=== PATIENT | female | born 1945 | race Caucasian/White ===

== ENCOUNTER → 2020-08-31 10:19 | Outpatient (CLI) | payer MEDICARE, SELFPAY ==
--- NOTE | ~2020-08-31 | CT_ITS ---
EXAMINATION:CT diagnostic chest wo con DATE: 08/31/2020 10:55 INDICATION: Dyspnea. Frequent asthma attacks. TECHNIQUE: Computed tomography (CT) of the chest was performed without intravenous contrast. Automate d exposure control and iterative reconstruction technique were employed. The dose-length product (DLP ) was 170.31 mGy-cm. COMPARISON: None. FINDINGS: A calcified right lung nodule and calcified right hilar lymph nodes are consistent with old granulomatous disease. There are two groundglass opacities in left upper lobe measuring up to 12 mm. There is mild atelectasis in the lingula. There is mild scarring at the lung apices. No pleural effu mariama. The heart size is normal. There are coronary artery calcifications. No pericardial effusion. Ca lcifications in the spleen are consistent with old granulomatous disease. There is mild thoracic spon dylosis. IMPRESSION: 1. Small groundglass opacities in left upper lobe, likely inflammation or infection. Reviewed, dictated and finalized at location A. IMPRESSION: 1. Small groundglass opacities in left upper lobe, likely inflammation or infec tion.
== END ==
PROVIDERS: PCP Internal Medicine
DX: J45.50 Severe persistent asthma, uncomplicated (principal); R91.8 Other nonspecific abnormal finding of lung field
CPT/HCPCS: 71250

== ENCOUNTER 2023-02-07 02:08 | Day surgery (SDC) | payer MEDICARE, SELFPAY ==
[2023-02-04 11:06] VITALS: BMI 23.8
--- NOTE | 2023-02-04 11:24 | PC.NURSE ---
Report to the Outpatient Waiting Room, entrance under the green pavilion located off [facility], at time __1100 on date _02/07/23 . Planned Procedure Time: __1200 . Time changes happen often and if your time is changed the preop area will call you the afternoon before. - You and your visitor will be asked to self-screen and do not enter if you have any COVID symptoms. - A mask is optional within the hospital at this time. -MAY HAVE LIGHT BREAKFAST Take the following medications with a SIP of water the morning of surgery: REGULAR HOME MEDS DO NOT STOP ANY OF YOUR OTHER PRESCRIPTION MEDICATIONS PRIOR TO SURGERY ?EXCEPT THE FOLLOWING Medications to discontinue per DR. VEGA - _ASPIRIN 7 DAYS PRIOR TO SURGERY last dose TAKEN PER PT ____01/31/23 Please no make-up, nail macedonian, hairspray, perfume, deodorant, or body powder the day of surgery. No jewelry (including any body piercings) or valuables the day of surgery, leave them at home. Please take a shower or bath the night before, or the morning of, surgery with an antibacterial soap. Wear comfortable, loose fitting clothing. Children are encouraged to wear pajamas. - Jewelry must be removed prior to entering the operating room. Rings and piercings that are not removed may be cut off. - The hospital will not accept responsibility for valuables. - Please leave all valuables, including medications, at home the day of surgery. -MAY DRIVE SELF TO/FROM HOSPITAL - BODYWORK THERAPIST IS ENCOURAGED For Pediatric surgeries, we recommend two adults accompany the child home. Follow any additional instructions given to you from your surgeon. If you or anyone in your household have experienced Covid symptoms in the past week, please notify your surgeon or the nurse liaison at the phone number below for possible testing. Telephone instructions given to ____PT and asked if any additional questions and then verbalized understanding. Patient advised to call surgeon office or pre surgery nurse liaison [phone] if any additional questions.
[2023-02-07] VITALS (9 sets, daily range): BP systolic 142–181; BP diastolic 54–75; PULSE 64–79; RESP 14–18; TEMP 36.4; O2SAT 98–100
[2023-02-07] MEDS: ACETAMINOPHEN 500 MG TABLET 1000 MG PO (11:15)
--- NOTE | 2023-02-07 11:38 | WPDHPUPDATE1 ---
History and Physical Update Update Date/Time: 02/07/23 11:38 History and Physical has been reviewed, including an updated exam of the patient. There are NO changes in the patient's condition. Risks, benefits, and alternatives have been discussed and questions answered. Patient agrees to proceed with procedure.
[2023-02-07] MEDS: BUPIVACAINE/EPINEPHRINE 0.5% 50 ML VIAL 15 ML INFILTRATE (12:40)
--- NOTE | 2023-02-07 13:14 | P.OP_ITS ---
Procedure Note - Detailed Date of Procedure 02/07/23 Pre-op Diagnosis left wrist ganglion cyst Post-op Diagnosis Same Procedure Performed Excision left wrist dorsal ganglion cyst. Surgeon Myles Aquino MD Anesthesia Local Findings Large dorsal ganglion cyst. Stalk extending to the dorsal joint capsule. Ob vious benign appearance of a ganglion cyst with mucinous fluid inside. No pathology sent. Description of Procedure 6 mL 0.5% Marcaine with epinephrine injected in the periarticular tissues around the ganglion. Transverse incision created. Gentle blunt dissection with tenotomy scissors expose the cyst. The stalk was identified from the dorsal cap osbaldo excised and suture ligated with 4-0 Monocryl suture. The wound was irrigated and closed with interrupted 4-0 Monocryl suture, running, and Steri- Strips. The patient tolerated the procedure well. Sterile dressing was applied. Estimated Blood Loss 1 Pathology None sent Complications No immediate complications Condition Stable Disposition Same day [facility] Billing Surgery - Charge Forward: Surgery Billing
== END 2023-02-07 13:10 | disposition home or self-care (01) ==
PROVIDERS: PCP Internal Medicine; Visit Provider Orthopaedic Surgery
PROC: (CPT 25111; principal; 2023-02-07 12:00)
DX: M67.432 Ganglion, left wrist (principal)
CPT/HCPCS: 25111; 88305; A9270

== ENCOUNTER 2023-12-09 00:12 | Day surgery (SDC) | payer MEDICARE, SELFPAY ==
[2023-11-18 14:38] VITALS: BMI 23.6
--- NOTE | 2023-12-09 08:50 | WPDANESEPPF ---
Anes - Initial Pre Proc Eval Procedure: Operation Date: 12/09/23 13:30 Proposed Procedures p Colonoscopy - Leroy Adkins MD Date/Time: 12/09/23 08:50 Surgeon: Leroy Adkins MD Pre Op Diagnosis: Personal hx. of colon polyps Patient Data Age: 78 Gender: F Height: 1.52 m Weight: 55 kg Allergies Allergy/AdvReac Type Severity Reaction Status Date / Time Sulfa (Sulfonamide Allergy Unknown Unknown Verified 12/09/23 10:32 Antibiotics) Home Medications Medication Instructions Recorded Confirmed Type aspirin 81 mg tablet,delayed 81 mg PO DAILY 09/29/19 12/09/23 History release (Adult Aspirin Regimen) diltiazem HCl 180 mg 180 mg PO DAILY 09/29/19 12/09/23 History capsule,extended release 24 hr (Cartia XT) gabapentin 300 mg capsule See Rx Instructions .Route .COMPLEX 09/29/19 12/09/23 History ipratropium 20 mcg-albuterol 100 1 puff inhalation QID PRN Wheezing 09/29/19 12/09/23 History mcg/actuation mist for inhalation (Combivent Respimat) montelukast 10 mg tablet 10 mg PO DAILY 09/29/19 12/09/23 History fluticasone fur. 100 mcg-umeclid 1 inh inhalation DAILY PRN asthma 04/02/21 12/09/23 History 62.5 mcg-vilant 25 mcg inhalat.powder (Trelegy Ellipta) levothyroxine 50 mcg capsule 50 mcg PO DAILY 10/17/21 12/09/23 History lisinopril 20 1 tablet PO DAILY 02/04/23 12/09/23 History mg-hydrochlorothiazide 12.5 mg tablet magnesium 500 mg tablet 15 mg PO BID 02/04/23 12/09/23 History omeprazole 20 mg capsule,delayed 20 mg PO DAILY PRN Acid Reflux 02/04/23 12/09/23 History release Patient hx anesthesia problems: none Family hx anesthesia problems: none Results Review: All pre-operative results and documents have been reviewed as part of the pre-operative evaluation. [facility] Past Medical History Medical History (Updated 12/09/23 @ 08:53 by Timoteo Neves DO) Anxiety Asthma High cholesterol Hypertension Hypothyroidism Overactive bladder Rapid heart beat Screening mammogram, encounter for Surgical History Surgical History (Updated 12/09/23 @ 08:53 by Timoteo Neves DO) H/O knee surgery H/O: hysterectomy supracx hysterectomy History of bladder suspension procedure History of cardiac radiofrequency ablation 2015 History of surgical removal of ganglion cyst (~02/07/23) left wrist History of tonsillectomy Hx of cholecystectomy Family History Family History Mother Cancer Other Family history of congenital heart disease Family history of malignant neoplasm Social History Social History Years smoked: 45 Smoking status: Former smoker Tobacco type: cigarettes Second hand tobacco smoke exposure: No Additional smoking assessment comments: STATES SMOKED 1-2PK/DAY/38YRS/QUIT 1999 Alcohol intake: never Substance use: never Substance use type: does not use Lack of Transportation: No Lack of Food: Never True Current Housing: I Have Housing Concerned About Future Housing: No Difficulty Paying Gas/Electric Bills: No Difficulty Paying for Meds: No Currently Unemployed: No Education: Decline to Answer Living arrangements: with family Additional living arrangements comments: Occupation/Education: retired Gender identity (if verbalized by the patient): Female Sexual Orientation (if Verbalized by the Patient): Straight or Heterosexual Spiritual care concerns: No Anes - Eval Final PreProcedure Day of Procedure 12/09/23 08:50 Patient weight: normal Heart: regular rate and rhythm Lungs: clear to auscultation and normal air movement Airway: Mallampati scale class III Neurological: alert and oriented Last oral intake: >/= 8 hours ASA classification: III Emergent: no Anesthetic plan: proceed Anesthesia type and monitoring: general GIVS and standard karlie
[2023-12-09 10:34] VITALS: BP 141/61; PULSE 92; RESP 18; TEMP 36; O2SAT 99
[2023-12-09] MEDS: LACTATED RINGERS 1,000 ML 150 ML IV CONT (10:47)
--- NOTE | 2023-12-09 11:40 | PM.HPGS ---
History of Present Illness History of Present Illness Consent: Risks, benefits, and alternatives have been discussed and questions answered. Patient agrees to proceed with procedure. Chief complaint: Personal hx. of colon polyps Narrative: Dory Adams is a 78 year old female with colon polyp, last colonoscopy 2016 Review of Systems Review of Systems: All systems reviewed & are unremarkable except as noted in HPI and below PMFSH Past Medical History Medical History (Updated 12/09/23 @ 11:42 by Leroy Adkins MD) Anxiety Asthma Colon polyp High cholesterol Hypertension Hypothyroidism Overactive bladder Rapid heart beat Screening mammogram, encounter for Surgical History Surgical History (Updated 12/09/23 @ 08:53 by Timoteo Neves DO) H/O knee surgery H/O: hysterectomy supracx hysterectomy History of bladder suspension procedure History of cardiac radiofrequency ablation 2014 History of surgical removal of ganglion cyst (~02/07/23) left wrist History of tonsillectomy Hx of cholecystectomy Family History Family History Mother Cancer Other Family history of congenital heart disease Family history of malignant neoplasm Social History Social History Years smoked: 45 Smoking status: Former smoker Tobacco type: cigarettes Second hand tobacco smoke exposure: No Additional smoking assessment comments: STATES SMOKED 1-2PK/DAY/38YRS/QUIT 1999 Alcohol intake: never Substance use: never Substance use type: does not use Lack of Transportation: No Lack of Food: Never True Current Housing: I Have Housing Concerned About Future Housing: No Difficulty Paying Gas/Electric Bills: No Difficulty Paying for Meds: No Currently Unemployed: No Education: Decline to Answer Living arrangements: with family Additional living arrangements comments: Occupation/Education: retired Gender identity (if verbalized by the patient): Female Sexual Orientation (if Verbalized by the Patient): Straight or Heterosexual Spiritual care concerns: No Meds Home Medications and Allergies Home Medications Medication Instructions Recorded Confirmed Type aspirin 81 mg tablet,delayed 81 mg PO DAILY 09/29/19 12/09/23 History release (Adult Aspirin Regimen) diltiazem HCl 180 mg 180 mg PO DAILY 09/29/19 12/09/23 History capsule,extended release 24 hr (Cartia XT) gabapentin 300 mg capsule See Rx Instructions .Route .COMPLEX 09/29/19 12/09/23 History ipratropium 20 mcg-albuterol 100 1 puff inhalation QID PRN Wheezing 09/29/19 12/09/23 History mcg/actuation mist for inhalation (Combivent Respimat) montelukast 10 mg tablet 10 mg PO DAILY 09/29/19 12/09/23 History fluticasone fur. 100 mcg-umeclid 1 inh inhalation DAILY PRN asthma 04/02/21 12/09/23 History 62.5 mcg-vilant 25 mcg inhalat.powder (Trelegy Ellipta) levothyroxine 50 mcg capsule 50 mcg PO DAILY 10/17/21 12/09/23 History lisinopril 20 1 tablet PO DAILY 02/04/23 12/09/23 History mg-hydrochlorothiazide 12.5 mg tablet magnesium 500 mg tablet 15 mg PO BID 02/04/23 12/09/23 History omeprazole 20 mg capsule,delayed 20 mg PO DAILY PRN Acid Reflux 02/04/23 12/09/23 History release Allergies Allergy/AdvReac Type Severity Reaction Status Date / Time Sulfa (Sulfonamide Allergy Unknown Unknown Verified 12/09/23 10:32 Antibiotics) Vital Signs Vital Signs - 24 hr 12/09/23 10:34 Temperature 96.8 F L Pulse Rate 92 Respiratory Rate 18 Blood Pressure 141/61 H Pulse Oximetry 99 Oxygen Delivery Room Air Exam Const: General: comfortable and no acute distress HENMT: Face/Nose/Sinus: Normal nares present Eyes: General: appearance normal, both eyes and all related structures Neck: Neck: no JVD Resp: Auscultation: clear to auscultation bila
[2023-12-09 11:53] VITALS: BP 128/57; PULSE 77; RESP 18; O2SAT 99
[2023-12-09 12:03] VITALS: BP 122/62; PULSE 81; RESP 25; O2SAT 100
[2023-12-09 12:13] VITALS: BP 119/67; PULSE 76; RESP 13; O2SAT 100
== END 2023-12-09 12:17 | disposition home or self-care (01) ==
PROVIDERS: PCP Internal Medicine; Visit Provider Internal Medicine Gastroenterology
PROC: 0DJD8ZZ Inspection of Lower Intestinal Tract, Via Natural or Artificial Opening Endoscopic (ICD-10-PCS; CPT 45378; principal; 2023-12-09 13:30)
DX: Z12.11 Encounter for screening for malignant neoplasm of colon (principal); K57.30 Diverticulosis of large intestine without perforation or abscess without bleeding; I10 Essential (primary) hypertension; E78.00 Pure hypercholesterolemia, unspecified; E03.9 Hypothyroidism, unspecified; F41.9 Anxiety disorder, unspecified; J45.909 Unspecified asthma, uncomplicated; N32.81 Overactive bladder; R00.0 Tachycardia, unspecified; Z79.82 Long term (current) use of aspirin; Z98.890 Other specified postprocedural states; Z90.49 Acquired absence of other specified parts of digestive tract; Z86.010 Personal history of colon polyps; Z87.891 Personal history of nicotine dependence; Z86.79 Personal history of other diseases of the circulatory system; Z80.9 Family history of malignant neoplasm, unspecified; Z82.49 Family history of ischemic heart disease and other diseases of the circulatory system
CPT/HCPCS: G0105; J2704; J7120

== ENCOUNTER 2023-12-18 10:33 | Outpatient (CLI) | payer MEDICARE, SELFPAY ==
--- NOTE | ~2023-12-18 | XR_ITS ---
XR knee LT min 4V Ordering provider: Myles Aquino MD History: . M17.12 - Unilateral primary osteoarthritis, left knee . Comparison: January 07, 2019 FINDINGS: BONES: No acute fracture or dislocation. JOINT SPACES: Narrowing of the medial compartment. SOFT TISSUES: Vascular calcifications. IMPRESSION: No acute osseous abnormality left knee. Mild to Moderate osteoarthritic changes. Reviewed, dictated and finalized at location A.
== END 2023-12-18 10:34 | disposition home or self-care (01) ==
PROVIDERS: PCP Internal Medicine; Visit Provider Orthopaedic Surgery
DX: M17.12 Unilateral primary osteoarthritis, left knee (principal)
CPT/HCPCS: 73564

== ENCOUNTER 2023-12-24 14:06 | Outpatient (CLI) | payer MEDICARE, SELFPAY ==
--- NOTE | ~2023-12-24 | XR_ITS ---
XR cervical spine 4-5V Ordering provider: Myles Aquino MD History: . M54.2 - Cervicalgia . Comparison: None. FINDINGS: VERTEBRAL BODIES: Normal height and alignment. No visible fracture or subluxation. The dens is intact . DISK SPACES: Narrowing of the disc C3-C4. Multilevel facet joint disease. PARASPINOUS SOFT TISSUES: No prevertebral soft tissue swelling. IMPRESSION: No acute osseous abnormality cervical spine. Reviewed, dictated and finalized at location A.
== END 2023-12-24 14:07 | disposition home or self-care (01) ==
PROVIDERS: PCP Internal Medicine; Visit Provider Orthopaedic Surgery
DX: M54.2 Cervicalgia (principal)
CPT/HCPCS: 72050

== ENCOUNTER 2024-07-20 09:00 | Outpatient (RCR) | payer MEDICARE, SELFPAY ==
--- NOTE | 2024-07-12 11:04 | PCPTNOTE ---
pt was 10 minutes late for initial evaluation.
--- NOTE | 2024-07-12 12:03 | OPREHPOC ---
Outpatient Therapy Plan of Care This is a Multidisciplinary Plan of Care that may contain components documented by all disciplines (PT, OT, and ST.) PT Problem 1 PT Problem #1 Knowledge Deficit PT Goal 1 Goal / Goal Update *independent with HEP Target Visit 8 PT Problem 2 PT Problem #2 Pain PT Goal 1 Goal / Goal Update * pt report pain rating at worst of 4/10 Target Visit 8 PT Problem 3 PT Problem #3 Impaired Flexibility PT Goal 1 Goal / Goal Update *increase hamstring flexibility to decrease muscle tightness and decrease pull on hip: supine SLR R 60' Target Visit 8 PT Problem 4 PT Problem #4 Impaired Strength PT Goal 1 Goal / Goal Update increase strength of L hip, to improve mobility and activity level: 1* single leg standing 20 seconds with good stability 2* gross strength L hip 4+/5 Target Visit 8
--- NOTE | 2024-07-12 12:03 | PTOPEVAL1 ---
Assessment and note entered by Mabel Wong, PT Evaluation Information Assessment Status Evaluation ICD-10 Condition Codes (PT) Pain in left hip M25.552,Abnormalities of gait and mobility R26.9,Weakness R53.1 Other ICD-10 Condition Codes ( S76.312A strain of thigh muscle PT) Onset May 2024 Subjective Information some pain about 1 year ago with cleaning carpets; then leaned down to pick something up and had more pain in L hip and buttock; x ray of L hip dr told her pulled hamstring had PT at another facility, doing exercises and was better, then did some exercise pushing down on her L leg and pain got worse; stopped therapy there July 05. activity: retired; is able to do everything, but more soreness and pain; have a fitness membership- tries to go regularly for exercises. Reported Pain Level Pain Score Self Report Additional Pain Score Comments pain range in the past week: 1-10/10; soreness and pain over L hamstring- proximal insertion and mid thigh; lightening bolt or someone sticks your leg, bad pain; some groin pain--is less now; increase pain: move quickly, twist foot, walking/ standing with home tasks- varies decrease pain: rest, ice, heat, rub the area, sit, lie down, over the counter meds; after get up and moving, is less; have compression strap wrap around thigh sleeping is OK Assessment PT Clinical Summary Dory has the diagnosis of L hamstring strain. Onset of pain about 1 year ago with cleaning carpets, then increased recently with bending over Has had PT at another facility but stopped there last week due to more pain. LE functional scale rating of 61% limitation in activity level. With the evaluation: she has tenderness with palpation over L hamstring- lateral hamstring at mid muscle, also reports pain in groin area; decreased single leg standing and strength of L LE on stairs, requires single step pattern due to pain; decreased flexibility of hamstring; Skilled PT services are indicted for modalities to decrease pain, therapeutic exercises to increase strength of L hip and hamstring flexibility with education for HEP. Plan of Care Interventions Electrical Stimulation,Hot Pack/Cold Pack,Manual Therapy,Neuro Re-education,Patient/Caregiver Education,Therapeutic Activities,Therapeutic Exercise,Ultrasound,Other Other Interventions taping PT Services Indicated Yes Treatment Frequency and 1-2x/wk for 8 visits Duration These treatments will address the objective and functional deficits as defined above. The patient will be advanced safely and appropriately in order for the patient to progress towards his/her prior level of function. Additional exercises will be introduced and as well as a comprehensive home exercise program upon discharge, if needed, ?to ensure carryover of functional gains achieved in the clinic. This treatment plan has been reviewed and agreement upon by the patient.
--- NOTE | 2024-08-02 12:59 | OPREHPOC ---
Outpatient Therapy Plan of Care This is a Multidisciplinary Plan of Care that may contain components documented by all disciplines (PT, OT, and ST.) PT Problem 1 PT Problem #1 Knowledge Deficit PT Goal 1 Goal / Goal Update *independent with HEP 5-5-25 d/c pt called and canceled goals not assessed. Target Visit 8 PT Problem 2 PT Problem #2 Pain PT Goal 1 Goal / Goal Update * pt report pain rating at worst of 4/10 5-5-25 d/c pt called and canceled goals not assessed. Target Visit 8 PT Problem 3 PT Problem #3 Impaired Flexibility PT Goal 1 Goal / Goal Update *increase hamstring flexibility to decrease muscle tightness and decrease pull on hip: supine SLR R 60' 5-5-25 d/c pt called and canceled goals not assessed. Target Visit 8 PT Problem 4 PT Problem #4 Impaired Strength PT Goal 1 Goal / Goal Update increase strength of L hip, to improve mobility and activity level: 1* single leg standing 20 seconds with good stability 2* gross strength L hip 4+/5 5-5-25 d/c pt called and canceled goals not assessed. Target Visit 8
--- NOTE | 2024-08-02 13:02 | PTOPDC ---
Assessment and note entered by Mabel Wong, PT Assessment Status Discharge - Pt Not Present ICD-10 Condition Codes (PT) Pain in left hip M25.552,Abnormalities of gait and mobility R26.9,Weakness R53.1 Other ICD-10 Condition Codes ( S76.312A strain of thigh muscle PT) Onset May 2024 Subjective Information pt called and canceled remaining PT appointments due to feeling better. Assessment PT Clinical Summary Dory has received 3 PT sessions. She called today and canceled her remaining appointments due to feeling better. The goals were not addressed. Discharge PT services. Plan of Care PT Services Indicated No
== END 2024-08-02 14:32 | disposition home or self-care (01) ==
LOC: ANHPT 09:00
PROVIDERS: PCP Internal Medicine; Visit Provider Orthopaedic Surgery
DX: S76.312A Strain of muscle, fascia and tendon of the posterior muscle group at thigh level, left thigh, initial encounter (principal)
CPT/HCPCS: 97035; 97110; 97161; 97530

== ENCOUNTER 2024-12-13 10:59 | Emergency (ER) | payer MEDICARE, SELFPAY ==
--- NOTE | ~2024-12-13 | XR_ITS ---
Examination: XR chest 2V Clinical History: cough x 1 wk, rales L upper Comparison: Cough, Rales Technique: PA and Lateral Findings: Cardiomediastinal silhouette normal size and configuration. Lungs clear. Mild hyperinflation Right basilar calcified granuloma. No acute bony abnormality. Osteopenia. IMPRESSION: 1. No acute cardiopulmonary findings. Reviewed, dictated and finalized at location R.
[2024-12-13 11:10] VITALS: BP 144/69; PULSE 102; RESP 16; TEMP 36.2; O2SAT 95
--- NOTE | 2024-12-13 11:18 | ED.URI ---
HPI - URI/Sore Throat General Chief Complaint: Upper Respiratory Infection Stated Complaint: Cough Time Seen by Provider: 12/13/24 11:18 Source: patient Mode of arrival: ambulatory Limitations: no limitations History of Present Illness HPI Narrative: 79-year-old female with history of asthma per oz today with complaint of continued cough. Patient also reports that she has had sinus congestion and pressure. Is taking cefdinir that was prescribed by her primary care physician for bacterial sinusitis. Patient states that symptoms are improving but she continues to have cough. Patient states she called her primary care to office today asking for prednisone and they recommended that she get a checks x-ray before they would prescribed for her. Patient also needs albuterol nebs refilled. All systems reviewed and negative except as noted above. Related Data Home Medications ?Medication ?Instructions ?Recorded ?Confirmed ?Last Taken ?Type aspirin 81 mg tablet,delayed 81 mg PO DAILY 09/29/19 11/16/24 12/08/23 History release (Adult Aspirin Regimen) diltiazem HCl 180 mg 180 mg PO DAILY 09/29/19 11/16/24 12/09/23 02:00 History capsule,extended release 24 hr (Cartia XT) ipratropium 20 mcg-albuterol 100 1 puff inhalation QID PRN Wheezing 09/29/19 11/16/24 12/08/23 History mcg/actuation mist for inhalation (Combivent Respimat) fluticasone fur. 100 mcg-umeclid 1 inh inhalation DAILY PRN asthma 04/02/21 11/16/24 12/08/23 History 62.5 mcg-vilant 25 mcg inhalat.powder (Trelegy Ellipta) magnesium 500 mg tablet 15 mg PO BID 02/04/23 11/16/24 12/08/23 History ibandronate 150 mg tablet 150 mg PO MONTHLY 01/01/24 11/16/24 Unknown History gabapentin 300 mg capsule 300 mg PO .COMPLEX 11/16/24 11/16/24 Unknown History montelukast 10 mg tablet 10 mg PO QHS 11/16/24 11/16/24 Unknown History Allergies Allergy/AdvReac Type Severity Reaction Status Date / Time Sulfa (Sulfonamide Allergy Intermediate Swelling Verified 12/13/24 11:06 Antibiotics) of Lip/Tongue/Throat PMFSH Past Medical History Medical History (Updated 12/13/24 @ 11:52 by Jerri Irving NP) Acute non-recurrent maxillary sinusitis Anemia hemoglobin 11.9 on 07/20/2024. Statin intolerance patient reports myalgias and swelling of the muscles with Lipitor and another statin years ago. Mixed hyperlipidemia Total cholesterol 223, triglycerides 126, HDL 44, LDL 154 with ratio 5.1 on 07/20/2024. Mild intermittent asthma in adult without complication Essential hypertension Irritable bowel syndrome GERD (gastroesophageal reflux disease) Rapid heart beat Stable tachyarrhythmia previous ablation Neuropathy of left foot Colon polyp normal colonoscopy 12/09/2023 with no need for follow-up. Screening mammogram, encounter for Hypothyroidism TSH 1.07 on 07/20/2024. Overactive bladder High cholesterol Asthma Anxiety Surgical History Surgical History History of cardiac radiofrequency ablation 2014 History of surgical removal of ganglion cyst (~02/07/23) left wrist H/O knee surgery History of tonsillectomy History of bladder suspension procedure Hx of cholecystectomy H/O: hysterectomy supracx hysterectomy Family History Family History (Updated 11/16/24 @ 13:11 by Radha Bruce MA) Mother Cancer Cerebrovascular accident Hypertension Sibling Lung cancer Sibling Stomach cancer Sibling Lung cancer Sibling Heart disease Sibling Lung cancer Sibling Lung cancer Father Asthma Cerebrovascular accident Other Family history of congenital heart disease Family history of malignant neoplasm Social History Social History Years smoked: 45 Smoking status: Former smoker Tobacco type: cigarettes Second hand tobacco smoke exposure: No Additional smoking assessment comments: STATES SMOKED 1-2PK/DAY/38YRS/QUIT 1999 Alcohol intake: never Substance use: never Substance use type: does not use Lack of Transportation: No Lack of Food: Never True Current Housing: I Have Housing Concerned About Future Housing: No Difficulty Paying Gas/Electric Bills: No Difficulty Paying for Meds: No Currently Unemployed: No Education: Decline to Answer Living arrangements: with family Additional living arrangements comments: Occupation/Education: retired Gender identity (if verbalized by the patient): Female Sexual Orientation (if Verbalized by the Patient): Straight or Heterosexual Spiritual care concerns: No Comments At time of signature, agree with nursing past medical, surgical, social and family history. There is no relevant family history pertinent to the presenting complaint. Exam Narrative: GENERAL: This is a well-nourished, well-developed patient, in no apparent distress. HEAD: normocephalic, atraumatic. EYES: PERRL. Sclera clear/white. Vision is grossly intact. EARS: External ears normal, auditory canals clear and without drainage, TMs normal without perforation. Hearing grossly intact. NOSE: External nose normal with Clear nasal drainage, erythema to nares. THROAT: Mucous membranes moist, Clear postnasal drainage NECK: Neck supple, non-tender without lymphadenopathy, masses or thyromegaly. CARDIOVASCULAR: Regular rate and rhythm without murmurs, gallops, or rubs. RESPIRATORY: course on expiration to left upper lung field otherwise a mild expiratory wheezing throughout. Breath sounds equal bilaterally. No wheezes, rales, or rhonchi. SKIN: warm, Dry, intact with no suspicious lesions or rash, good texture and turgor. NEURO: awake, alert, and oriented to person, place and time. There were no obvious focal neurologic abnormalities. EXTREMITIES: No joint tenderness, effusion, or edema noted. Course Course Level of Care: Express Care Visit Vital Signs Vital signs: Vital Signs Temperature 36.2 C L 12/13/24 11:10 Pulse Rate 102 H 12/13/24 11:10 Respiratory Rate 16 12/13/24 11:10 Blood Pressure 144/69 H 12/13/24 11:10 Pulse Oximetry 95 12/13/24 11:10 Oxygen Delivery Room Air 12/13/24 11:10 Temperature 36.2 C L 12/13/24 11:10 Pulse Rate 102 H 12/13/24 11:10 Respiratory Rate 16 12/13/24 11:10 Blood Pressure 144/69 H 12/13/24 11:10 Pulse Oximetry 95 12/13/24 11:10 Oxygen Delivery Room Air 12/13/24 11:10 Reviewed MDM - URI/Sore Throat MDM Narrative Medical decision making narrative: chest x-ray negative for pneumonia. Will prescribe prednisone burst, refill albuterol neb. Patient is well-appearing, nontoxic. No respiratory distress. Will follow up with primary care physician as needed. Differential Diagnosis Differential diagnosis: Likely upper respiratory infection, sinusitis, viral infection and other ( Pneumonia, COVID-19, asthma exacerbation) Imaging Data My impression: agree with radiologist Radiologist's impression: Examination: XR chest 2V Clinical History: cough x 1 wk, rales L upper Comparison: Cough, Rales Technique: PA and Lateral Findings: Cardiomediastinal silhouette normal size and configuration. Lungs clear. Mild hyperinflation Right basilar calcified granuloma. No acute bony abnormality. Osteopenia. IMPRESSION: 1. No acute cardiopulmonary findings. Discharge Plan Discharge Clinical Impression: Asthma exacerbation Patient Disposition: Home Condition: Stable Instructions: Asthma (ED) Additional Instructions: your chest x-ray was negative for pneumonia. Continue cefdinir as prescribed by her primary care physician. Start prednisone prescription today. Follow-up with your doctor if not improving. Patient Language: Slovenian Prescriptions: New albuterol sulfate 2.5 mg /3 mL (0.083 %) solution for nebulization 2.5 mg inhalation Q6H PRN (Reason: shortness of breath or wheezing) Qty: 75 0RF prednisone 20 mg tablet 40 mg PO DAILY 5 Days Qty: 10 0RF No Action Trelegy Ellipta 100-62.5-25 mcg blister with device 1 inh inhalation DAILY PRN (Reason: asthma) Patient Comments: PT STATS CURRENTLY NOT TAKING - DOES NOT WANT IT REMOVED FROM LIST diltiazem HCl [Cartia XT] 180 mg capsule,extended release 24hr 180 mg PO DAILY Combivent Respimat 20-100 mcg/actuation mist 1 puff INHALATION QID PRN (Reason: Wheezing) Rx Instructions: space evenly during waking hours aspirin [Adult Aspirin Regimen] 81 mg tablet,delayed release (DR/EC) 81 mg PO DAILY ibandronate 150 mg tablet 150 mg PO MONTHLY dexamethasone 0.5 mg/5 mL solution 0.5 mg PO BID 7 Days Qty: 70 4RF Rx Instructions: Swish around your mouth for 30 seconds and spit out gabapentin 300 mg capsule 300 mg PO .COMPLEX Rx Instructions: 300 mg orally One capsule in the morning and 2 capsules at bedtime; duloxetine 30 mg capsule,delayed release(DR/EC) 30 mg PO DAILY Qty: 30 11RF Rx Instructions: plan to titrate to 60 mg montelukast 10 mg tablet 10 mg PO QHS clobetasol 0.05 % ointment 1 applic topical Q48H Qty: 60 3RF estradiol 0.01 % (0.1 mg/gram) cream 1 g vaginal 2XW Qty: 42.5 5RF magnesium 500 mg Tablet 15 mg PO BID lisinopril 20 mg tablet 20 mg PO DAILY Qty: 90 3RF cefdinir 300 mg capsule 300 mg PO Q12H 10 Days Qty: 20 0RF Rx Instructions: do not take magnesium supplements at the same time as the antibiotic. levothyroxine [Levo-T] 50 mcg tablet 50 mcg PO DAILY Qty: 90 3RF Follow-up/Referrals: Toribio Burris MD [Primary Care Provider, [facility]] Time of Disposition: 11:54
--- OUTSIDE RECORDS SUMMARY | 2024-12-13 12:56 | XMS_ITS | Patient Health Record ---
Author Organization [facility] Address [address] [place] [address] Support Name Relationship Address Phone Carolyne Adamslis Guarantor Unknown Reason For Referral No Information Medications Medication SIG (Take, Route, Frequency, Duration) Notes Start Date End Date Status Nebulizer Use nebs as needed f or asthma 02/03/2007 Active Ibandronate Sodium 150 MG one pill q mos Oral 08/2006 Active Synthroid 150 MCG 1 Every Day Oral 11/08/2005 Active Gabapentin 100 MG one in am and two in pm Oral 08/13/2010 Active ALPRAZolam 0.25 MG 1 Every Day At Bedti ia Oral 04/17/2009 Active Lisinopril 10 MG 1 Every Day Oral 02/03/2007 Active Singulair 10 MG 1 Every Day Oral 07/20/2010 Active CeleXA 20 MG 1 Every Day for depression Oral 12/22/2009 Active Ines Allergy 180 MG QD Oral 01/23/2010 Active Fosamax 70 MG 1 Q WEEK Oral 04/21/2009 A ctive Calcium Antacid 500 MG 1 Three Times A Day Oral Active Onward Thyroid 30 MG 1 Every Day Oral 08/13/2010 Active Zithromax Z-Adama 250 MG as directed Oral 09/17/2010 Active Nasonex 24HR 50 MCG/ACT 2 sprays each no stril q day Nasal 07/20/2010 Active Advair Diskus 250-50 MCG/ACT 1 INHALATION BID Inhalation 07/20/2010 Active Flonase Allergy Relief 50 MCG/ACT 2 sprays each nostril q day Nasal 04/17/2009 Active predniSONE 10 MG (48) 6pills x 3days, 4p ills x 3days, 2pills x 3days, 1pill x 3days Oral 09/17/2010 Active Albuterol Sulfate HFA 108 (90 Base) MCG/ACT 2 puffs q 4 hrs prn Inhalation 04/17/2009 Active Combivent Respimat 20-100 MCG/ACT 2 PUFF QID Inhalation 07/20/2010 Active Lipitor 40 MG 1 Every Day Oral 11/08/2005 Active Immunizations Vaccine Route Administration Date Status Comme nts Infuenza, trivalent, recombinant, preservative free Unknown 12/29/2008 Administered migrated LegPa tid= [id number] Date=01/18/2005 Vac= Influenza Pneumococcal conjugate PCV 13 Unknown 05/19/2002 Administered migrated LegPati d= [id number] Date=05/19/2002 Vac= PCV series Td (adult) Unknown 01/17/2000 Administered migrated Leg Patid= [id number] Date=01/17/2000 Vac= TD Plan Of Treatment No Information Insurance Providers Payer Name Payer Address Payer Phone Subscriber Number Group Number Insured Name Patient Relationship to Insured Coverage Start Date Coverage End Date [employer] [place] [address] [place] [address] [id number] Dory Adams Self - patient is the insured 1
--- OUTSIDE RECORDS SUMMARY | 2024-12-13 12:56 | XMS_ITS | Clinical Summary ---
Author Organization [facility] Address [address] [place] [address] Care Team Providers Care Information Engineer Name Role Phone Juwan Contreras MD Primary Care Provider [phone] Allergies Active Allergy Reactions Criticality Noted Date Comments Atorvastatin Muscle pain Medium 03/29/2013 Rosuvastatin Edema Medium 03/29/2013 Sulfa (Sulfonamide Antibiotics) Swelling Medium Sulfanilamide Medications dilTIAZem XR (CARDIZEM CD,DILACOR XR) 180 mg 24 hr capsule TAKE ONE CAPSULE DAILY 7 Active ipratropium-albut Eliezer (COMBIVENT RESPIMAT) 20-100 mcg/actuation inhalerIndication s:Chronic Obstructive Pulmonary Disease with Bronchospasms INHALE 1 PUFF 4 TIMES DAILY (MAXIMUM OF 6 PUFFS IN 24 HOURS) NEEDED 7 Active gabapentin (NEURONTIN) 300 mg capsule TAKE 1 CAP AT BEDTIME X 7 DAYS, THEN TAKE 2 CAPS AT BEDTIME UNTIL GONE 7 Active montelukast (SINGULAIR) 10 mg tablet daily. 7 Active alendronate (FOSAMAX) 70 mg tablet 8 Active aspirin 81 mg enteric coated tablet Take 81 mg by mouth daily Active albuterol 2.5 mg /3 mL (0.083 %) nebulizer solution INHALE THE CONTENTS OF ONE VIAL VIA NEBULIZER 4 TIMES A DAY NEEDED. 0 Active lisinopril-hydroC HLOROthiazide (ZESTORETIC) 20-12.5 mg per tablet 0 Active magnesium oxide/magnesium (WJ-ITFJ-NBKGVCC ORAL) Magnesium (oxide/AA chelate) 500mg daily Active multivitamin capsule Take by mouth 7 Active levothyroxine (SYNTHROID) 50 mcg tablet daily Active inhalational spacing device spacer 1 Inhalation 2 (two) times a day 1 each 1 1 Active cholecalciferol (VITAMIN D-3) 400 unit capsule Active calcium carbonate (CALCIUM 500 ORAL) Take by mouth Active ibandronate (BONIVA) 150 mg tablet TAKE 1 TABLET BY MOUTH ONCE EVERY MONTH 1 Active multivitamin capsule Take by mouth 7 Active benzonatate (TESSALON) 200 mg capsule 1 Active clobetasoL (TEMOVATE) 0.05 % ointment 1 Active fluticasone-umecl idin-vilanter (Trelegy Ellipta) 200-62.5-25 mcg inhaler Inhale 1 puff daily 1 each 3 1 Active Active Problems Problem Noted Date Diagnosed Date Atrial flutter 03/21/2020 Hypothyroidism 03/21/2020 HTN (hypertension) 03/21/2020 Neuropathy 03/21/2020 Basal cell carcinoma of leg, right 01/03/2020 Neoplasm of soft tissue 11/08/2019 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 Holguin HYSTERECTOMY BLADDER SURGERY HERNIA REPAIR KNEE SURGERY TONSILLECTOMY TUBAL LIGATION Medical History Medical History Date Comments Anxiety disorder anxiety Hx Other Medical Genitourinary D isease Disorder of thyroid Thyroid dise ase Hx Other Medical Hearing impairm ent Asthma Asthma Hypertension Hypertension Atrial arrhythmia Cardiac arryth komal Hx Other Medical Headache, migra ine Hyperlipidemia Hyperlipidemia Hx Other Medical Hemorrhoids Hx Other Medical Peripheral neur opathy; Outcome: improved Cancer (HCC) Family History Medical History Relation Name Comments Asthma Brother 1 Cancer Brother 1 Family history of malignant neoplasm - (Added by TW Conv) Heart disease Brother 1 Hypertension Brother 2 Family history of hypertension - (Added by TW Conv) Asthma Father Cancer Father Family history of malignant neoplasm - (Added by TW Conv) Hypertension Father Family history of hypertension - (Added by TW Conv) Cancer Mother Family history of malignant neoplasm - (Added by TW Conv) Heart disease Mother Hypertension Mother Family history of hypertension - (Added by TW Conv) Other Other 1 Family history of Cancer, uterine; Other Other 2 Family history of Cancer - leg; Lung cancer Other 3 Family history of Cancer, lung; Other Other 4 Family history of Cancer - stomach; Other Other 5 Family history of Cancer - metastasized to brain; Other Other 6 Family history of aneurysm; Alcohol abuse Other 7 Family history of Alcoholism; Asthma Other 8 Family history of Asthma; COPD Other 9 Family history of COPD; Hyperlipidemia Other 10 Family histor y of Hyperlipidemia; Hypertension Other 11 Family history of Hypertension; Heart attack Other 12 Family history of Myocardial infarction; Kidney disease Other 13 Family histor y of Renal disease; Peripheral vascular disease Other 14 Peripheral vascular disease; Other Other 15 Family history of Spinal disease, lumbar; Cancer Sister 1 Family history of malignant neoplasm - (Added by TW Conv) Heart disease Sister 1 Hypertension Sister 2 Family history of hypertension - (Added by TW Conv) Heart disease Son Relation Name Status Comments Brother 1 Brother 2 Father Mother Other 1 Other 2 Other 3 Other 4 Other 5 Other 6 Other 7 Other 8 Other 9 Other 10 Other 11 Other 12 Other 13 Other 14 Other 15 Sister 1 Sister 2 Son Social History Tobacco Use Types Packs/Day Years Used Date Smoking Tobacco: Former Smokeless Tobacco: Never Alcohol Use Standard Drinks/Week Comments No 0 (1 standard drink = 0.6 oz pur e alcohol) Comments Unknown Sex and Gender Information Value Date Recorded Sex Assigned at Not on file Legal Sex Female 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 Gender Identity Not on file Sexual Orientation Not on file Obstetrics History Last Filed Vital Signs Vital Sign Reading Time Taken Comments Blood Pressure 119/78 03/13/2021 10:12 AM GUIDE RAIL CLEANER Pulse 73 03/13/2021 10:12 AM GUIDE RAIL CLEANER Temperature 36.2 C (97.2 F) 11/14/2020 10:05 AM CDT Respiratory Rate - - Oxygen Saturation 97% 11/14/2020 10:05 AM CDT Inhaled Oxygen Concentration - - Weight 57.2 kg (126 lb) 03/13/2021 10:12 AM GUIDE RAIL CLEANER Height 152.4 cm (5') 03/13/2021 10:12 AM GUIDE RAIL CLEANER Body Mass Index 24.61 03/13/2021 10:12 AM GUIDE RAIL CLEANER Plan of Treatment Not on file Insurance [facility] MEDICARE AD[facility]ANT[facility] MED[facility] Address: [facility] [address] [place] [address] MEDICARE COMMERCIAL GENERIC Care Teams Information Engineer Relationship Specialty Start Date End Date Juwan Contreras MD PCP - General 12/09/12
--- OUTSIDE RECORDS SUMMARY | 2024-12-13 12:56 | XMS_ITS | Encounter Summary ---
Author Organization [facility] Address [address] [place] [address] Phone Care Team Providers Care Laundry Bag Punch Operator Name Role Phone Juwan Contreras MD Primary Care Provider [phone] Encounter Details Date Type Department Care Team (Latest Contact Info) Description 09/05/2020 Orders Only [facility] Scanning, Provider Social History Tobacco Use Types Packs/Day Years Used Date Smoking Tobacco: Former Smokeless Tobacco: Never Alcohol Use Standard Drinks/Week Comments No 0 (1 standard drink = 0.6 oz pur e alcohol) Comments Unknown Sex and Gender Information Value Date Recorded Sex Assigned at Not on file Legal Sex Female 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
--- OUTSIDE RECORDS SUMMARY | 2024-12-13 12:56 | XMS_ITS | Encounter Summary ---
Author Organization [facility] Address [address] [place] [address] Phone Care Team Providers Care Degreasing Solution Reclaimer Name Role Phone Juwan Contreras MD Primary Care Provider [phone] Encounter Details Date Type Department Care Team (Latest Contact Info) Description 09/01/2020 Orders Only [facility] Scanning, Provider Social History Tobacco Use Types Packs/Day Years Used Date Smoking Tobacco: Former Smokeless Tobacco: Never Alcohol Use Standard Drinks/Week Comments No 0 (1 standard drink = 0.6 oz pur e alcohol) Comments Unknown Sex and Gender Information Value Date Recorded Sex Assigned at Not on file Legal Sex Female 3:01 AM EMD TEACHER Gender Identity Not on file Sexual Orientation Not on file documented as of this encounter Plan of Treatment Not on file documented as of this encounter Procedures Procedure Name Priority Date/Time Associated Diagnosis Comments SCAN - LABS 09/01/2020 SCAN - RADIOLOGY/IMAGING 08/31/2020 documented in this encounter Results * SCAN - LABS (09/01/2020) us Provider Scanning Final Result * SCAN - RADIOLOGY/IMAGING (08/31/2020) Anatomical Region Laterality Modality Other us Provider Scanning Edited Result - Final documented in this encounter Visit Diagnoses Not on filedocumented in this encounter Care Teams Degreasing Solution Reclaimer Relationship Specialty Start Date End Date Juwan Contreras MD PCP - General 12/09/12 documented as of this encounter
--- OUTSIDE RECORDS SUMMARY | 2024-12-13 12:56 | XMS_ITS | Encounter Summary ---
Author Organization [facility] Address [address] [place] [address] Phone Care Team Providers Care Pilot Control Operator Name Role Phone Juwan Contreras MD Primary Care Provider [phone] Reason for Visit * Reason Onset Date Comments Knee Injury 08/08/2020 Patient fell in parking lot coming in for appt. Patient provider was told and patient assured us she was ok. Pt was given ice for knee. Encounter Details Date Type Department Care Team (Late st Contact Info) Description 08/08/2020 Documentation [facility] Medicine Pulmonary [address] [place] [address] Sylvia Singh RCP Knee Injury (Patient fell in parking lot coming in for appt. Patient provider was told and patient assured us she was ok. Pt was given ice for knee. 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
== END 2024-12-13 11:55 | disposition home or self-care (01) ==
PROVIDERS: Emergency Provider Nurse Practitioner Family; PCP Family Medicine
DX: J45.901 Unspecified asthma with (acute) exacerbation (principal); Z87.891 Personal history of nicotine dependence; E78.2 Mixed hyperlipidemia; I10 Essential (primary) hypertension; K21.9 Gastro-esophageal reflux disease without esophagitis; E03.9 Hypothyroidism, unspecified; G62.9 Polyneuropathy, unspecified; Z79.82 Long term (current) use of aspirin
CPT/HCPCS: 71046; 99213; G0463

== ENCOUNTER 2024-12-19 22:33 | Emergency (ER) | payer MEDICARE, SELFPAY ==
--- NOTE | ~2024-12-19 | XR_ITS ---
Examination: XR chest 1V portable Clinical History: cough Comparison: 12/13/2024 Technique: Portable AP Findings: Heart size normal. Lungs clear. Mild hyperinflation. Right basilar calcified granuloma. No acute bony abnormality. IMPRESSION: 1. No acute cardiopulmonary findings given portable technique. Reviewed, dictated and finalized at location R.
[2024-12-19 22:47] VITALS: BP 159/61; PULSE 69; RESP 22; TEMP 36.7; O2SAT 98
--- NOTE | 2024-12-19 23:10 | ECG_ITS ---
Test Date: 2024-12-19 23:17:47 Measurements Intervals [place] Rate: 70 P: 66 PA: 128 QRS: 43 QRSD: 101 T: 45 QT: 360 QTc: 391 Interpretive Statements SINUS RHYTHM No previous ECG available for comparison Electronically Signed On 12-20-2024 14:20:58 CDT by Eloy Enamorado M.D.
[2024-12-19] MEDS: LORazepam (*CRX) 0.5 MG TABLET PO (23:43)
[2024-12-19] MEDS: DOXYCYCLINE HYCLATE 100 MG TABLET PO (23:43)
[2024-12-19 23:45] VITALS: RESP 16; O2SAT 98
--- OUTSIDE RECORDS SUMMARY | 2024-12-19 23:46 | XMS_ITS | Encounter Summary ---
Author Organization [facility] Address [address] [place] [address] Phone Care Team Providers Care Plug Sorter Name Role Phone Juwan Contreras MD Primary Care Provider [phone] Reason for Visit * Reason Onset Date Comments Knee Injury 08/08/2020 Patient fell in parking lot coming in for appt. Patient provider was told and patient assured us she was ok. Pt was given ice for knee. Encounter Details Date Type Department Care Team (Late st Contact Info) Description 08/08/2020 Documentation [facility] Medicine Pulmonary [address] [facility] 2nd [address] [place] [address] Sylvia Singh RCP Knee Injury (Patient fell [...] on file Legal Sex Female 3:01 AM COMBATANT DIVER QUALIFIED Gender Identity Not on file Sexual Orientation Not on file documented as of this encounter Miscellaneous Notes * Incidental Note - Sylvia Singh RCP - 08/08/2020 11:59 PM CDT Pt fell in parking lot before visit documented in this encounter Plan of Treatment Not on file documented as of this encounter Visit Diagnoses Not on filedocumented in this encounter Care Teams Plug Sorter Relationship Specialty Start Date End Date Juwan Contreras MD PCP - General 12/09/12 documented as of this encounter
--- OUTSIDE RECORDS SUMMARY | 2024-12-19 23:46 | XMS_ITS | Clinical Summary ---
Author Organization [facility] Address [address] [place] [address] Care Team Providers Care Wellhead Pumper Name Role Phone Juwan Contreras MD Primary Care Provider [phone] Allergies Active Allergy Reactions Criticality Noted Date [...] mg per tablet 0 Active magnesium oxide/magnesium (IF-[id number] ORAL) Magnesium (oxide/AA chelate) 500mg daily Active [...] on file Legal Sex Female 3:01 AM SUPERVISOR REMELT Gender Identity Not on file Sexual Orientation Not on file Obstetrics History Last Filed Vital Signs Vital Sign Reading Time Taken Comments Blood Pressure 119/78 03/13/2021 10:12 AM SUPERVISOR REMELT Pulse 73 03/13/2021 10:12 AM SUPERVISOR REMELT Temperature 36.2 C (97.2 F) 11/14/2020 10:05 AM CDT Respiratory Rate - - Oxygen Saturation 97% 11/14/2020 10:05 AM CDT Inhaled Oxygen Concentration - - Weight 57.2 kg (126 lb) 03/13/2021 10:12 AM SUPERVISOR REMELT Height 152.4 cm (5') 03/13/2021 10:12 AM SUPERVISOR REMELT Body Mass Index 24.61 03/13/2021 10:12 AM SUPERVISOR REMELT Plan of Treatment Not on file Insurance [facility] MEDICARE ADVANTAGE MEDICARE COMMERCIAL GENERIC Care Teams Wellhead Pumper Relationship Specialty Start Date End Date Juwan Contreras MD PCP - General 12/09/12
--- OUTSIDE RECORDS SUMMARY | 2024-12-19 23:46 | XMS_ITS | Encounter Summary ---
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
--- OUTSIDE RECORDS SUMMARY | 2024-12-19 23:46 | XMS_ITS | Encounter Summary ---
Author Organization [facility] Address [address] [place] [address] Phone Care Team Providers Care Flight Reservations Manager Name Role Phone Juwan Contreras MD Primary Care Provider [phone] Encounter Details Date Type Department Care Team [...] on file Legal Sex Female 3:01 AM LICENSED MORTGAGE LOAN OFFICER Gender Identity Not on file Sexual Orientation [...] on filedocumented in this encounter Care Teams Flight Reservations Manager Relationship Specialty Start Date End Date Juwan Contreras MD PCP - General 12/09/12 documented as of this encounter
--- OUTSIDE RECORDS SUMMARY | 2024-12-19 23:46 | XMS_ITS | Patient Health Record ---
Author Organization [facility] Address [address] [facility] [address] [place] [address] Support Name Relationship Address Phone Carolyne Adamslis [...] 0.25 MG 1 Every Day At [place] Oral 04/17/2009 Active Lisinopril 10 MG 1 Every Day Oral 02/03/2007 Active Singulair 10 MG 1 Every Day Oral 07/20/2010 Active CeleXA 20 MG 1 Every Day for depression Oral 12/22/2009 Active Ines Allergy 180 MG QD Oral 01/23/2010 Active Fosamax 70 MG 1 Q WEEK Oral 04/21/2009 A ctive Calcium Antacid 500 MG 1 Three Times A Day Oral Active [place] Thyroid 30 MG 1 Every Day Oral [...] free Unknown 12/29/2008 Administered migrated LegPa tid= [id number] Date=01/18/2005 Vac= Influenza Pneumococcal conjugate PCV 13 Unknown 05/19/2002 Administered migrated LegPati d= [id number] Date=05/19/2002 Vac= PCV series Td (adult) Unknown 01/17/2000 Administered migrated Leg Patid= [id number] Date=01/17/2000 Vac= TD Plan Of Treatment No Information Insurance Providers Payer Name Payer Address Payer Phone Subscriber Number Group Number Insured Name Patient Relationship to Insured Coverage Start Date Coverage End Date [employer] [place] [address] [place] [address] [id number] Dory Adams Self - patient is the insured 1
[2024-12-19] MEDS: ALBUTEROL SULFATE NEB 2.5 MG/3 ML INH 15 MG INHALATION (23:53)
[2024-12-19] MEDS: IPRATROPIUM BR 0.02% INH SOLN 0.5 MG/2.5 ML VIAL 1 MG INHALATION (23:54)
[2024-12-19 23:59] VITALS: PULSE 71; RESP 24
[2024-12-20 00:48] VITALS: BP 164/80; PULSE 71; RESP 18; O2SAT 98
[2024-12-20 01:22] VITALS: BP 160/62; PULSE 82; RESP 14; O2SAT 98
--- NOTE | 2024-12-20 02:38 | ED.RECABL ---
HPI - Recheck/Abnormal Lab/Rx General Chief Complaint: Recheck/Abnormal Lab/Rx Stated Complaint: ELEVATED BLOOD PRESSURE Time Seen by Provider: 12/19/24 23:10 History of Present Illness HPI narrative: A for last week or so patient has had a sinus infection that seemed to have gone into her lungs, she has already had an outpatient x-ray that was negative, and had taken a round of cefdinir antibiotics and prednisone. She got into an argument with relative earlier tonight and noticed that her blood pressure was high, and kept getting higher the more she took it, she is already on lisinopril for her blood pressure. Related Data Home Medications ?Medication ?Instructions ?Recorded ?Confirmed ?Last Taken ?Type aspirin 81 mg tablet,delayed 81 mg PO DAILY 09/29/19 11/16/24 12/08/23 History release (Adult Aspirin Regimen) diltiazem HCl 180 mg 180 mg PO DAILY 09/29/19 11/16/24 12/09/23 02:00 History capsule,extended release 24 hr (Cartia XT) ipratropium 20 mcg-albuterol 100 1 puff inhalation QID PRN Wheezing 09/29/19 11/16/24 12/08/23 History mcg/actuation mist for inhalation (Combivent Respimat) fluticasone fur. 100 mcg-umeclid 1 inh inhalation DAILY PRN asthma 04/02/21 11/16/24 12/08/23 History 62.5 mcg-vilant 25 mcg inhalat.powder (Trelegy Ellipta) magnesium 500 mg tablet 15 mg PO BID 02/04/23 11/16/24 12/08/23 History ibandronate 150 mg tablet 150 mg PO MONTHLY 01/01/24 11/16/24 Unknown History gabapentin 300 mg capsule 300 mg PO .COMPLEX 11/16/24 11/16/24 Unknown History montelukast 10 mg tablet 10 mg PO QHS 11/16/24 11/16/24 Unknown History Allergies Allergy/AdvReac Type Severity Reaction Status Date / Time Sulfa (Sulfonamide Allergy Intermediate Swelling Verified 12/19/24 23:38 Antibiotics) of Lip/Tongue/Throat Review of Systems Review of Systems: All systems reviewed & are unremarkable except as noted in HPI and below [facility] Past Medical History Medical History (Updated 12/20/24 @ 01:03 by Ann Marie Escalera MD) Acute non-recurrent maxillary sinusitis Anemia hemoglobin 11.9 on 07/20/2024. Statin intolerance patient reports myalgias and swelling of the muscles with Lipitor and another statin years ago. Mixed hyperlipidemia Total cholesterol 223, triglycerides 126, HDL 44, LDL 154 with ratio 5.1 on 07/20/2024. Mild intermittent asthma in adult without complication Essential hypertension Irritable bowel syndrome GERD (gastroesophageal reflux disease) Rapid heart beat Stable tachyarrhythmia previous ablation Neuropathy of left foot Colon polyp normal colonoscopy 12/09/2023 with no need for follow-up. Screening mammogram, encounter for Hypothyroidism TSH 1.07 on 07/20/2024. Overactive bladder High cholesterol Asthma Anxiety Surgical History Surgical History History of cardiac radiofrequency ablation 2014 History of surgical removal of ganglion cyst (~02/07/23) left wrist H/O knee surgery History of tonsillectomy History of bladder suspension procedure Hx of cholecystectomy H/O: hysterectomy supracx hysterectomy Family History Family History (Updated 11/16/24 @ 13:11 by Radha Bruce MA) Mother Cancer Cerebrovascular accident Hypertension Sibling Lung cancer Sibling Stomach cancer Sibling Lung cancer Sibling Heart disease Sibling Lung cancer Sibling Lung cancer Father Asthma Cerebrovascular accident Other Family history of congenital heart disease Family history of malignant neoplasm Social History Social History Years smoked: 45 Smoking status: Former smoker Tobacco type: cigarettes Second hand tobacco smoke exposure: No Additional smoking assessment comments: STATES SMOKED 1-2PK/DAY/38YRS/QUIT 1999 Alcohol intake: never Substance use: never Substance use type: does not use Lack of Transportation: No Lack of Food: Never True Current Housing: I Have Housing Concerned About Future Housing: No Difficulty Paying Gas/Electric Bills: No Difficulty Paying for Meds: No Currently Unemployed: No Education: Decline to Answer Living arrangements: with family Additional living arrangements comments: Occupation/Education: retired Gender identity (if verbalized by the patient): Female Sexual Orientation (if Verbalized by the Patient): Straight or Heterosexual Spiritual care concerns: No Exam Narrative: EXAMINATION OF ORGAN SYSTEMS/BODY AREAS: Constitutional: Vital signs per nursing GENERAL: Appears slightly frustrated HEAD: Normal with no signs of head trauma. EYES: EOMI, conjunctiva normal ENT: Hearing grossly intact LUNGS: Nonlabored breathing. Bilateral end-expiratory wheezing HEART: [Regular rate and rhythm] ABD: [Soft], [nontender to palpation] EXT: Normal range of motion SKIN: [No rashes or lesions.] NEURO: [Alert and oriented x 3. No gross focal sensory or strength deficits.] PSYCH: Normal affect Course Vital Signs Vital signs: Vital Signs Temperature 98.1 F 12/19/24 22:47 Pulse Rate 69 12/19/24 22:47 Respiratory Rate 22 H 12/19/24 22:47 Blood Pressure 159/61 H 12/19/24 22:47 Pulse Oximetry 98 12/19/24 22:47 Oxygen Delivery Room Air 12/19/24 22:47 Temperature 98.1 F 12/19/24 22:47 Pulse Rate 82 12/20/24 01:22 Respiratory Rate 14 12/20/24 01:22 Blood Pressure 160/62 H 12/20/24 01:22 Pulse Oximetry 98 12/20/24 01:22 Oxygen Delivery Room Air 12/19/24 22:47 MDM - Recheck/Abnormal Lab/Rx MDM Narrative Medical decision making narrative: Patient presents here with persistent wheezing and cough, started about a week ago from a sinus infection, has already completed a round of antibiotics and steroids. Her blood pressure has been higher than usual also and she thinks part of it may be stress and being sick. She is well-appearing here otherwise, shows no chest pain, she is wheezing and I suspect she likely has acute bronchitis given her symptoms and history. Chest x-ray on my independent interpretation shows some reticular opacities, possibly viral, she has already taken cefdinir so I will trial a course of doxycycline for atypical pneumonia. EKG on my independent interpretation shows sinus rhythm rate 70, CO 128, QRS 101, QTC 391, normal axis, no ST elevations or depressions or signs of acute ischemia or arrhythmia She is given hour long breathing treatment on re-evaluation, states she feels much better. She has also been pretty stressed and upset due to an argument earlier tonight so I did trial a small dose of Ativan after which he does feel better and her blood pressure has improved slightly. Discussed with patient she should keep a log of her pressures and follow up with her doctor in a week to see if they need to adjust any medications. Will also provide follow-up to a compounding scaler for future issues with her breathing if she has trouble getting in to her PCP. Discussed return precautions and they are agreeable to plan Discharge Plan Discharge Clinical Impression: Acute bronchitis, Chronic hypertension Patient Disposition: Home Condition: Stable Instructions: Antibiotic Form, Acute Bronchitis (ED) Additional Instructions: Please follow up with your doctor or the compounding scaler; you can always return for any further issues. Patient Language: Malagasy Prescriptions: New doxycycline hyclate 100 mg capsule 100 mg PO Q12H 5 Days Qty: 10 0RF No Action albuterol sulfate 2.5 mg /3 mL (0.083 %) solution for nebulization 2.5 mg inhalation Q6H PRN (Reason: shortness of breath or wheezing) Qty: 75 0RF prednisone 20 mg tablet 40 mg PO DAILY 5 Days Qty: 10 0RF Trelegy Ellipta 100-62.5-25 mcg blister with device 1 inh inhalation DAILY PRN (Reason: asthma) Patient Comments: PT STATS CURRENTLY NOT TAKING - DOES NOT WANT IT REMOVED FROM LIST diltiazem HCl [Cartia XT] 180 mg capsule,extended release 24hr 180 mg PO DAILY Combivent Respimat 20-100 mcg/actuation mist 1 puff INHALATION QID PRN (Reason: Wheezing) Rx Instructions: space evenly during waking hours aspirin [Adult Aspirin Regimen] 81 mg tablet,delayed release (DR/EC) 81 mg PO DAILY ibandronate 150 mg tablet 150 mg PO MONTHLY dexamethasone 0.5 mg/5 mL solution 0.5 mg PO BID 7 Days Qty: 70 4RF Rx Instructions: Swish around your mouth for 30 seconds and spit out gabapentin 300 mg capsule 300 mg PO .COMPLEX Rx Instructions: 300 mg orally One capsule in the morning and 2 capsules at bedtime; duloxetine 30 mg capsule,delayed release(DR/EC) 30 mg PO DAILY Qty: 30 11RF Rx Instructions: plan to titrate to 60 mg montelukast 10 mg tablet 10 mg PO QHS clobetasol 0.05 % ointment 1 applic topical Q48H Qty: 60 3RF estradiol 0.01 % (0.1 mg/gram) cream 1 g vaginal 2XW Qty: 42.5 5RF magnesium 500 mg Tablet 15 mg PO BID lisinopril 20 mg tablet 20 mg PO DAILY Qty: 90 3RF levothyroxine [Levo-T] 50 mcg tablet 50 mcg PO DAILY Qty: 90 3RF Follow-up/Referrals: Rosana Gallo MD [Physician, Pulmonology] - 2 Days
== END 2024-12-20 01:24 | disposition home or self-care (01) ==
PROVIDERS: Emergency Provider Emergency Medicine; PCP Family Medicine
DX: J40 Bronchitis, not specified as acute or chronic (principal); I10 Essential (primary) hypertension; E78.5 Hyperlipidemia, unspecified; E03.9 Hypothyroidism, unspecified; F41.9 Anxiety disorder, unspecified
CPT/HCPCS: 71045; 93005; 94640; 99283; A9270

== ENCOUNTER 2025-01-28 07:26 | Outpatient (CLI) | payer MEDICARE, SELFPAY ==
--- NOTE | ~2025-01-28 | MM_ITS ---
EXAMINATION: MM screening goldy BI w elliott HISTORY: Screening TECHNIQUE: Craniocaudal and mediolateral oblique 3-D tomosynthesis images were obtained and synthetic 2-D images were generated. CAD analysis was submitted and interpreted. COMPARISON: No prior mammogram is available for comparison at this institution. BREAST PARENCHYMAL COMPOSITION: Not dense: There are scattered areas of fibroglandular density. FINDINGS: There is no evidence of suspicious mass, calcification, or architectural distortion to suggest malignancy in either breast. There has been no suspicious interval change. IMPRESSION: 1. No mammographic evidence of malignancy. 2. Recommend routine screening mammography in one year. BI-RADS Category 1: Negative Reviewed, dictated and finalized at location C.
--- OUTSIDE RECORDS SUMMARY | 2025-01-28 07:32 | XMS_ITS | Encounter Summary ---
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
--- OUTSIDE RECORDS SUMMARY | 2025-01-28 07:32 | XMS_ITS | Clinical Summary ---
Author Organization [facility] Address [address] [place] [address] Care Team Providers Care Sole Conditioner Name Role Phone Juwan Contreras MD Primary Care Provider [phone] Allergies Active Allergy Reactions Criticality Noted Date [...] mg per tablet 0 Active magnesium oxide/magnesium (SF-[id number] ORAL) Magnesium (oxide/AA chelate) 500mg daily Active [...] on file Legal Sex Female 3:01 AM DATABASE ADMINISTRATION MANAGER Gender Identity Not on file Sexual Orientation Not on file Obstetrics History Last Filed Vital Signs Vital Sign Reading Time Taken Comments Blood Pressure 119/78 03/13/2021 10:12 AM DATABASE ADMINISTRATION MANAGER Pulse 73 03/13/2021 10:12 AM DATABASE ADMINISTRATION MANAGER Temperature 36.2 C (97.2 F) 11/14/2020 10:05 AM CDT Respiratory Rate - - Oxygen Saturation 97% 11/14/2020 10:05 AM CDT Inhaled Oxygen Concentration - - Weight 57.2 kg (126 lb) 03/13/2021 10:12 AM DATABASE ADMINISTRATION MANAGER Height 152.4 cm (5') 03/13/2021 10:12 AM DATABASE ADMINISTRATION MANAGER Body Mass Index 24.61 03/13/2021 10:12 AM DATABASE ADMINISTRATION MANAGER Plan of Treatment Not on file Insurance [facility] MEDICARE ADVANTAGE MEDICARE COMMERCIAL GENERIC Care Teams Sole Conditioner Relationship Specialty Start Date End Date Juwan Contreras MD PCP - General 12/09/12
--- OUTSIDE RECORDS SUMMARY | 2025-01-28 07:32 | XMS_ITS | Encounter Summary ---
Author Organization [facility] Address [address] [place] [address] Phone Care Team Providers Care Forensic Document Examiner Name Role Phone Juwan Contreras MD Primary Care Provider [phone] Encounter Details Date Type Department Care Team [...] on file Legal Sex Female 3:01 AM STUCCO MASON Gender Identity Not on file Sexual Orientation [...] on filedocumented in this encounter Care Teams Forensic Document Examiner Relationship Specialty Start Date End Date Juwan Contreras MD PCP - General 12/09/12 documented as of this encounter
--- OUTSIDE RECORDS SUMMARY | 2025-01-28 07:32 | XMS_ITS | Patient Health Record ---
Author Organization [facility] Address [address] [facility] [address] [place] [address] Support Name Relationship Address Phone Carolyne Adamslis [...] 0.25 MG 1 Every Day At Bedti [place] Oral 04/17/2009 Active Lisinopril 10 MG 1 Every Day Oral 02/03/2007 Active Singulair 10 MG 1 Every Day Oral 07/20/2010 Active CeleXA 20 MG 1 Every Day for depression Oral 12/22/2009 Active Ines Allergy 180 MG QD Oral 01/23/2010 Active Fosamax 70 MG 1 Q WEEK Oral 04/21/2009 A ctive Calcium Antacid 500 MG 1 Three Times A Day Oral Active [place] Thyroid 30 MG 1 Every Day Oral [...] Vaccine Route Administration Date Status Comme nts Td (adult) Unknown 01/17/2000 Administered migrated Leg Patid= [id number] Date=01/17/2000 Vac= TD Pneumococcal conjugate PCV 13 Unknown 05/19/2002 Administered migrated LegPati d= [id number] Date=05/19/2002 Vac= PCV series Infuenza, trivalent, recombinant, preservative free Unknown 12/29/2008 Administered migrated LegPa tid= [id number] Date=01/18/2005 Vac= Influenza Plan Of Treatment No Information Insurance Providers Payer Name Payer Address Payer Phone Subscriber Number Group Number Insured Name Patient Relationship to Insured Coverage Start Date Coverage End Date [employer] [place] [address] [place] [address] [id number] Dory Adams Self - patient is the insured 1
--- OUTSIDE RECORDS SUMMARY | 2025-01-28 07:32 | XMS_ITS | Encounter Summary ---
Author Organization [facility] Address [address] [place] [address] Phone Care Team Providers Care Scooper Name Role Phone Juwan Contreras MD Primary Care Provider [phone] Reason for Visit * Reason Onset Date Comments Knee Injury 08/08/2020 Patient fell in parking lot coming in for appt. Patient provider was told and patient assured us she was ok. Pt was given ice for knee. 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
== END 2025-01-28 07:27 | disposition home or self-care (01) ==
LOC: ANHFOHIMG 07:29
PROVIDERS: PCP Family Medicine; Visit Provider Family Medicine
DX: Z12.31 Encounter for screening mammogram for malignant neoplasm of breast (principal)
CPT/HCPCS: 77063; 77067

== ENCOUNTER 2025-02-16 09:49 | Outpatient (CLI) | payer MEDICARE, SELFPAY ==
--- NOTE | ~2025-02-16 | XR_ITS ---
EXAMINATION: XR chest 2V, 02/16/2025 10:15 [facility] HISTORY: Atrial Flutter, ASTHMA, CHEST PAIN COMPARISON: No comparisons available. Technique: 2 views obtained. Findings: Calcified granuloma right lower lobe otherwise the lungs are clear. No pneumothorax. Heart is normal size. Mediastinal and hilar contours are within normal limits. Bony thorax no acute abnormality. Impression: No acute cardiopulmonary abnormality. Reviewed, dictated and finalized at location [facility]. [facility] Impression: No acute cardiopulmonary abnormality.
[2025-02-16 12:22] LABS: Alanine Aminotransferase 14 U/L (6-35); Albumin Level 4.4 g/dL (3.5-5.1); Alkaline Phosphatase 54 U/L (38-126); Anion Gap 7 mmol/L (4-12); Aspartate Amino Transferase 28 U/L (14-36); Bilirubin,Total 0.7 mg/dL (0.2-1.3); Blood Urea Nitrogen 28 mg/dL (7-17); Calcium 9.7 mg/dL (8.4-10.2); Carbon Dioxide 29 mmol/L (22-30); Chloride 100 mmol/L (98-107); Cholesterol 203 mg/dL (0-200); Estimated Glomerular Filt Rate > 60; Glucose 120 mg/dL (65-110); HDL Direct 39 mg/dL; Potassium 4.1 mmol/L (3.4-5.0); Sodium 136 mmol/L (137-145); Total Protein 7.1 g/dL (6.3-8.2); Triglycerides 103 mg/dL (<150)
[2025-02-16 12:49] LABS: MALB Creatinine Ratio < 18.5 mg/g (0-30)
--- OUTSIDE RECORDS SUMMARY | 2025-02-16 13:39 | XMS_ITS | Patient Health Record ---
Author Organization [facility] Address [address] [facility] [address] [place] [address] Support Name Relationship Address Phone LisaCarolyne ojedalis Guarantor Unknown Reason For Referral No Information [...] 0.25 MG 1 Every Day At Bedti [place] Oral 04/17/2009 Active Lisinopril 10 MG 1 Every Day Oral 02/03/2007 Active Singulair 10 MG 1 Every Day Oral 07/20/2010 Active CeleXA 20 MG 1 Every Day for depression Oral 12/22/2009 Active Ines Allergy 180 MG QD Oral 01/23/2010 Active Fosamax 70 MG 1 Q WEEK Oral 04/21/2009 A ctive Calcium Antacid 500 MG 1 Three Times A Day Oral Active [place] Thyroid 30 MG 1 Every Day Oral [...] (adult) Unknown 01/17/2000 Administered migrated Leg Patid= [id number] Date=01/17/2000 Vac= TD Pneumococcal conjugate PCV 13 Unknown 05/19/2002 Administered migrated LegPati d= [id number] Date=05/19/2002 Vac= PCV series Infuenza, trivalent, recombinant, preservative free Unknown 12/29/2008 Administered migrated LegPa tid= [id number] Date=01/18/2005 Vac= Influenza Plan Of Treatment No Information Insurance Providers Payer Name Payer Address Payer Phone Subscriber Number Group Number Insured Name Patient Relationship to Insured Coverage Start Date Coverage End Date [employer] [place] [address] [place] [address] [id number] Dory Adams Self - patient is the insured 1
--- OUTSIDE RECORDS SUMMARY | 2025-02-16 13:39 | XMS_ITS | Encounter Summary ---
Author Organization [facility] Address [address] [place] [address] Phone Care Team Providers Care Railroad Supervisor Of Engines Name Role Phone Juwan Contreras MD Primary Care Provider [phone] Reason for Visit * Reason Onset Date Comments Knee Injury 08/08/2020 Patient fell in parking lot coming in for appt. Patient provider was told and patient assured us she was ok. Pt was given ice for knee. Encounter Details Date Type Department Care Team (Late st Contact Info) Description 08/08/2020 Documentation [facility] Medicine Pulmonary [address] [facility] [address] [place] [address] Sylvia Singh RCP Knee Injury (Patient fell [...] on file Legal Sex Female 3:01 AM MANUFACTURED BUILDINGS SUPERVISOR Gender Identity Not on file Sexual Orientation Not on file documented as of this encounter Functional Status documented as of this encounter Miscellaneous Notes * Incidental Note - Sylvia Singh RCP - 08/08/2020 11:59 PM CDT Pt fell in parking lot before visit documented in this encounter Plan of Treatment Not on file documented as of this encounter Visit Diagnoses Not on filedocumented in this encounter Care Teams Railroad Supervisor Of Engines Relationship Specialty Start Date End Date Juwan Contreras MD PCP - General 12/09/12 documented as of this encounter
--- OUTSIDE RECORDS SUMMARY | 2025-02-16 13:39 | XMS_ITS | Clinical Summary ---
Author Organization [facility] al Address [address] [place] [address] Care Team Providers Care [employer] Dean Name Role Phone Juwan Contreras MD Primary Care Provider [phone] Allergies Active Allergy Reactions Criticality Noted Date [...] mg per tablet 0 Active magnesium oxide/magnesium (TR-[id number] ORAL) Magnesium (oxide/AA chelate) 500mg daily Active [...] on file Legal Sex Female 3:01 AM FUR LINER Gender Identity Not on file Sexual Orientation Not on file Last Filed Vital Signs Vital Sign Reading Time Taken Comments Blood Pressure 119/78 03/13/2021 10:12 AM FUR LINER Pulse 73 03/13/2021 10:12 AM FUR LINER Temperature 36.2 C (97.2 F) 11/14/2020 10:05 AM CDT Respiratory Rate - - Oxygen Saturation 97% 11/14/2020 10:05 AM CDT Inhaled Oxygen Concentration - - Weight 57.2 kg (126 lb) 03/13/2021 10:12 AM FUR LINER Height 152.4 cm (5') 03/13/2021 10:12 AM FUR LINER Body Mass Index 24.61 03/13/2021 10:12 AM FUR LINER Plan of Treatment Not on file Insurance [facility] MEDICARE ADVANTAGE MEDICARE COMMERCIAL GENERIC [facility] [address] [address] Care Teams Business [employer] Dean Relationship Specialty Start Date End Date Juwan Contreras MD PCP - General 12/09/12
--- OUTSIDE RECORDS SUMMARY | 2025-02-16 13:39 | XMS_ITS | Encounter Summary ---
Author Organization [facility] Address [address] [place] [address] Phone Care Team Providers Care Medical Lab Technologist Name Role Phone Juwan Contreras MD Primary Care Provider [phone] Encounter Details Date Type Department Care Team [...] on file Legal Sex Female 3:01 AM GRADER PATROL Gender Identity Not on file Sexual Orientation [...] on filedocumented in this encounter Care Teams Medical Lab Technologist Relationship Specialty Start Date End Date Juwan Contreras MD PCP - General 12/09/12 documented as of this encounter
--- OUTSIDE RECORDS SUMMARY | 2025-02-16 13:39 | XMS_ITS | Encounter Summary ---
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
--- OUTSIDE RECORDS SUMMARY | 2025-02-16 13:39 | XMS_ITS | Data Portability ---
Author Organization [facility] [place], Main Office Address [address] [place] [address] Assessment No assessment recorded. Plan of Treatment Reminders Order Date Submit Date Provider Last Modified By Organization Details Last Modified Time Details Appointments None recorded . Lab vitamin D, 25-hydro xy, total, serum 2024 025 [email or web address] [facility], [address], [place], [address], 5 10:29:11 HbA1c (hemoglo bin A1c), blood 2024 025 HÉCTOR [facility], [address], [place], [address], 5 14:12:16 CMP, serum or plasma 2024 025 [email or web address] [facility], [address], [place], [address], 5 10:29:10 CBC w/ auto diff 2024 025 [email or web address] [facility], [address], [place], [address], 5 10:29:11 lipid panel, serum 2024 025 [email or web address] [facility], [address], [place], [address], 5 10:29:11 TSH, serum or plasma 2024 025 [email or web address] [facility], [address], [address], 5 10:29:11 CMP, serum or plasma 2023 024 [facility], [address] [place], [address], 4 22:01:14 urinalys is, complete 2023 024 [email or web address] [facility], [address] [place], [address], 4 08:14:20 CBC w/ auto diff 2023 024 [facility] On [facility] Orders, [address] [place], [address], 4 21:16:14 lipid panel, serum 2023 024 [facility] Orders, [address] [place], [address], 4 22:01:19 CBC w/ auto diff 2023 024 [facility], [address] [place], [address], 4 04:45:08 vitamin D, 25-hydro xy, total, serum 2023 024 [facility] Orders, [address] [place], [address], 4 04:45:08 TSH, serum or plasma 2023 024 [facility] Orders, [address] [place], [address], 4 22:29:41 T3, free, serum or plasma 2023 024 [facility] Orders, [address] [place], [address], 4 22:16:17 Referral None recorded . Procedures colonosc opy procedur e (PROC) 2023 024 [email or web address] [address] Abisai Marquez MD, [address], [address], [place], [address], 4 08:14:08 Surgeries None recorded . Imaging MAMMO, screenin g, digital, bilatera l - Please call patient to schedule . 2024 025 [email or web address] [facility], [address], [place], [address], 5 12:23:20 MAMMO, screenin g, digital, bilatera l - no auth required 2023 024 [email or web address] [facility] (Radiology), [address] [place], [address], 4 09:03:44 bone density - no auth required [address] ([facility]), [address] [place], [address], 4 08:25:03 Medication Orders clotrima zole 10 mg royal 2023 024 [email or web address] [facility] [facility], [address] [place], [address], 5 11:08:48 monteluk ast 10 mg tablet 2023 024 [email or web address] [facility] [address] In [facility], [address] [place], [address], 4 12:19:56 gabapent in 300 mg capsule 2023 024 [facility] [address], [address], 4 12:19:56 predniso ne 20 mg tablet 2023 024 [email or web address] [facility] [address], [address], 5 11:09:34 doxycycl ine hyclate 100 mg capsule 2023 024 [email or web address] [facility] [address], [address], 4 08:52:20 Patient TargetsNo targets recorded. Patient Instructions Encounter Date Encounter Id Patient Instructions Last Modified By Organization Details Last Modified Time 12/16/2023 [id number] dementia rating scale-2* Not available 12/16/2023 14:55:35 depression screening* Not available 12/16/2023 14:55:36 alcohol misuse* Not available 12/16/2023 14:55:36 multi-dimensiona l health assessment questionnaire* Not available 12/16/2023 14:55:36 advance directiv es: care instructions Not available 12/16/2023 14:55:36 advance care planning: care instructions Not available 12/16/2023 14:55:36 [place] Advance Directives Not available 12/16/2023 14:55:35 Personalized a lth Plan and Screening Recommendations Advance Directives - Do you have one? No You have indicated that you are capable of preparing your advance care directive Advance Directives - Do we have your advance directive on file in your health record? No, please bring in a copy at your earliest convenience Primary Prevention/Interven tion (prevents or decreases the chance of common diseases from occurring) Smoking Risk: Non Smoker Alcohol Misuse Screening: Negative Weight: Appropriate Physical activity: Appropriate physical activity Nutrition: Average Fall Risk (screened today): Low Vaccines Pneumococcal: No further needed Influenza: Your next one in the fall of this year Chronic Disease Risks Stroke: Intermediate Risk Active diagnosis, Continue current treatment plan Heart Attack: Intermediate Risk Active diagnosis, Continue current treatment plan Clogging of the Arteries: Intermediate Risk Active diagnosis, Continue current treatment plan Diabetes: Low Risk I have no recommendations Secondary Prevention/Interven tion (detects treatable diseases before they may cause symptoms, disability, or ) Breast Cancer Screening with mammogram: No screening necessary Cervical/Uterine/Ov dimitri Cancer Screening: No screening necessary Osteoporosis Screening: Your next DEXA in: 2024 Date Screening Last Performed: Colon Cancer Screening: No screening necessary Date Screening Last Performed: 08/2015 Eye Disease Screening: Recommended today Dementia Risk: Low I have no recommendations Depression Screening: Negative I have no recommendations. [email or web address] Not available 12/16/2023 13:37:17 07/19/2024 [id number] Personalized a lt Plan and Screening Recommendations Advance Directives - Do you have one? No You have indicated that you are capable of preparing your advance care directive Advance Directives - Do we have your advance directive on file in your health record? No, please bring in a copy at your earliest convenience Primary Prevention/Interven tion (prevents or decreases the chance of common diseases from occurring) Smoking Risk: Non Smoker Alcohol Misuse Screening: Negative Weight: Appropriate Physical activity: Appropriate physical activity Nutrition: Average Fall Risk (screened today): Low Vaccines Pneumococcal: No further needed Influenza: Your next one in the fall of this year Chronic Disease Risks Stroke: Intermediate Risk Active diagnosis, Continue current treatment plan Heart Attack: Intermediate Risk Active diagnosis, Continue current treatment plan Clogging of the Arteries: Intermediate Risk Active diagnosis, Continue current treatment plan Diabetes: Low Risk I have no recommendations Secondary Prevention/Interven tion (detects treatable diseases before they may cause symptoms, disability, or ) Breast Cancer Screening with mammogram: No screening necessary Cervical/Uterine/Ov dimitri Cancer Screening: No screening necessary Osteoporosis Screening: Your next DEXA in: 2024 Date Screening Last Performed: Colon Cancer Screening: No screening necessary Date Screening Last Performed: 08/2015 Eye Disease Screening: Recommended today Dementia Risk: Low I have no recommendations Depression Screening: Negative I have no recommendations. [email or web address] Not available 07/19/2024 11:04:18 Reason for Referral None Reported. Results Created Date Observation Date Name Description Value Unit Range Abnormal Flag Note LastModifiedBy Organization Detail LastModifiedTime 03/20/20 23 03/20/2023 SARS- COV-2 (COVI D-19) ANTIG EN sars-cov-2 (covid-19) antigen REACTI VE non-re active abnormal This test has been autho rized by the FDA under an Emerg ency Use Autho rizat ion (EUA) for use by autho rized labor atori es. This test is only for the detec tion of SARS- CoV-2 antig en, not for any other virus es or patho gens. Negat johnie resul ts from patie nts with sympt om onset outsi de of one to six days shoul d be treat ed as presu mptiv e. Negat johnie resul ts do not rule out SARS- CoV-2 infec tion and shoul d not be used as the sole basis of treat ment or patie nt manag ement decis ions, inclu ding infec tion contr ol decis ions. Negat johnie resul ts shoul d be consi dered in the chrissy xt of a patie nt's recen t expos ures, histo ry and the prese nce of clini jewel signs and sympt oms consi stent with COVID -19. The VITRO S Immun odiag nosti cs Produ cts SARS- CoV-2 Antig en Lette r of Autho rizat ion, along with the autho rized Fact Sheet for Healt hcare Provi ders, the autho rized Fact Sheet for Recip ients , and autho rized label ing are avail able on the FDA Websi te: https ://ww w.fda .gov/ medic al-de vices /cayla navir us-di sease -2019 -covi d-19- emerg ency- use-a leodan guadalupe-m edica l-dev ices/ vitro -diag nosti cs-eu as# indiv idual -sero logic al Not Available [facility] (Lab) [address] [place], [address], 03/20/2023 10:34:15 03/20/20 23 03/20/2023 SARS- COV-2 (COVI D-19) ANTIG EN signal to cutoff ratio 1090 0.00-0 .99 abnormal Not Available [facility] (Lab) [address] [place], [address], 03/20/2023 10:34:15 07/28/19 24 07/28/2023 CBC/C OMPLE TE BLD COUNT W/DIF F white blood cells 6.0 x10'3 /uL 4.2-10 .8 Not Available [facility] (Lab) [address] [place], [address], 07/28/2023 21:16:14 07/28/19 24 07/28/2023 CBC/C OMPLE TE BLD COUNT W/DIF F red blood cells 3.90 x10'6 /uL 3.80-5 .20 Not Available [facility] (Lab) [address] [place], [address], 07/28/2023 21:16:14 07/28/19 24 07/28/2023 CBC/C OMPLE TE BLD COUNT W/DIF F hemoglobin 11.7 g/dL 12.0-1 5.6 low Not Available [facility] (Lab) [address] [place], [address], 07/28/2023 21:16:14 07/28/19 24 07/28/2023 CBC/C OMPLE TE BLD COUNT W/DIF F hematocrit 36.2 % 35.7-4 5.7 Not Available [facility] (Lab) [address] [place], [address], 07/28/2023 21:16:14 07/28/19 24 07/28/2023 CBC/C OMPLE TE BLD COUNT W/DIF F mean red cell volume 92.8 fL 82.0-9 9.0 Not Available [facility] (Lab) [address] [place], [address], 07/28/2023 21:16:14 07/28/19 24 07/28/2023 CBC/C OMPLE TE BLD COUNT W/DIF F mean red cell hemoglobin 30.0 pg 27.0-3 3.0 Not Available [facility] (Lab) [address] [place], [address], 07/28/2023 21:16:14 07/28/19 24 07/28/2023 CBC/C OMPLE TE BLD COUNT W/DIF F mean RBC HGB concentratio n 32.3 g/dL 31.0-3 6.0 Not Available [facility] (Lab) [address] [place], [address], 07/28/2023 21:16:14 07/28/19 24 07/28/2023 CBC/C OMPLE TE BLD COUNT W/DIF F red cell distribution width 12.4 % 11.8-1 5.5 Not Available [facility] (Lab) [address] [place], [address], 07/28/2023 21:16:14 07/28/19 24 07/28/2023 CBC/C OMPLE TE BLD COUNT W/DIF F platelets 283 x10'3 /uL 150-40 0 Not Available [facility] (Lab) [address] [place], [address], 07/28/2023 21:16:14 07/28/19 24 07/28/2023 CBC/C OMPLE TE BLD COUNT W/DIF F mean platelet volume 11.6 fL 9.0-12 .4 Not Available [facility] (Lab) [address] [place], [address], 07/28/2023 21:16:14 07/28/19 24 07/28/2023 CBC/C OMPLE TE BLD COUNT W/DIF F neutrophils 52.0 % 39.0-7 2.0 Not Available [facility] (Lab) [address] [place], [address], 07/28/2023 21:16:14 07/28/19 24 07/28/2023 CBC/C OMPLE TE BLD COUNT W/DIF F lymphocytes 35.7 % 16.0-4 7.0 Not Available [facility] (Lab) [address] [place], [address], 07/28/2023 21:16:14 07/28/19 24 07/28/2023 CBC/C OMPLE TE BLD COUNT W/DIF F monocytes 7.9 % 5.0-12 .0 Not Available [facility] (Lab) [address] [place], [address], 07/28/2023 21:16:14 07/28/19 24 07/28/2023 CBC/C OMPLE TE BLD COUNT W/DIF F eosinophils 2.7 % 1.0-7. 0 Not Available [facility] (Lab) [address] [place], [address], 07/28/2023 21:16:14 07/28/19 24 07/28/2023 CBC/C OMPLE TE BLD COUNT W/DIF F basophils 1.5 % 0.0-2. 0 Not Available [facility] (Lab) [address] [place], [address], 07/28/2023 21:16:14 07/28/19 24 07/28/2023 CBC/C OMPLE TE BLD COUNT W/DIF F immature granulocytes 0.2 % 0.00-0 .50 Not Available [facility] (Lab) [address] [place], [address], 07/28/2023 21:16:14 07/28/19 24 07/28/2023 CBC/C OMPLE TE BLD COUNT W/DIF F neutrophils, absolute count 3.11 x10'3 /uL 1.5-8. 0 Not Available [facility] (Lab) [address] [place], [address], 07/28/2023 21:16:14 07/28/19 24 07/28/2023 CBC/C OMPLE TE BLD COUNT W/DIF F lymphocytes, absolute count 2.13 x10'3 /uL 1.07-3 .43 Not Available [facility] (Lab) [address] [place], [address], 07/28/2023 21:16:14 07/28/19 24 07/28/2023 CBC/C OMPLE TE BLD COUNT W/DIF F monocytes, absolute count 0.47 x10'3 /uL 0.29-0 .99 Not Available [facility] (Lab) [address] [place], [address], 07/28/2023 21:16:14 07/28/19 24 07/28/2023 CBC/C OMPLE TE BLD COUNT W/DIF F eosinophils, absolute count 0.16 x10'3 /uL 0.02-0 .53 Not Available [facility] (Lab) [address] [place], [address], 07/28/2023 21:16:14 07/28/19 24 07/28/2023 CBC/C OMPLE TE BLD COUNT W/DIF F basophils, absolute count 0.09 x10'3 /uL 0.01-0 .08 high Not Available [facility] (Lab) [address] [place], [address], 07/28/2023 21:16:14 07/28/19 24 07/28/2023 CBC/C OMPLE TE BLD COUNT W/DIF F immature granulocytes ,absolute 0.01 x10'3 /uL 0.00-0 .05 Not Available [facility] (Lab) [address] [place], [address], 07/28/2023 21:16:14 07/28/19 24 07/28/2023 CBC/C OMPLE TE BLD COUNT W/DIF F nucleated red blood cells 0.0 % -0 Not Available [facility] (Lab) [address] [place], [address], 07/28/2023 21:16:14 07/28/19 24 07/28/2023 CBC/C OMPLE TE BLD COUNT W/DIF F NRBC# 0.00 x10'3 /uL Not Available [facility] (Lab) [address] [place], [address], 07/28/2023 21:16:14 07/28/19 24 07/28/2023 COMPR EHENS JOHNIE METAB OLIC PANEL sodium 134 mmol/ L 137-14 5 low Not Available [facility] (Lab) [address] [place], [address], 07/28/2023 22:01:14 07/28/19 24 07/28/2023 COMPR EHENS JOHNIE METAB OLIC PANEL potassium 4.4 mmol/ L 3.5-5. 1 Not Available [facility] (Lab) [address] [place], [address], 07/28/2023 22:01:14 07/28/19 24 07/28/2023 COMPR EHENS JOHNIE METAB OLIC PANEL chloride 99 mmol/ L 98-107 Not Available [facility] (Lab) [address] [place], [address], 07/28/2023 22:01:14 07/28/19 24 07/28/2023 COMPR EHENS JOHNIE METAB OLIC PANEL carbon dioxide 25 mmol/ L 22-30 Not Available [facility] (Lab) [address] [place], [address], 07/28/2023 22:01:14 07/28/19 24 07/28/2023 COMPR EHENS JOHNIE METAB OLIC PANEL anion gap 14.4 mmol/ L 14-22 Not Available [facility] (Lab) [address] [place], [address], 07/28/2023 22:01:14 07/28/19 24 07/28/2023 COMPR EHENS JOHNIE METAB OLIC PANEL glucose 94 mg/dL 70-99 Not Available [facility] (Lab) [address] [place], [address], 07/28/2023 22:01:14 07/28/19 24 07/28/2023 COMPR EHENS JOHNIE METAB OLIC PANEL BUN 29 mg/dL 8-19 high Not Available [facility] (Lab) [address] [place], [address], 07/28/2023 22:01:14 07/28/19 24 07/28/2023 COMPR EHENS JOHNIE METAB OLIC PANEL creatinine 0.88 mg/dL 0.66-1 .25 Not Available [facility] (Lab) [address] [place], [address], 07/28/2023 22:01:14 07/28/19 24 07/28/2023 COMPR EHENS JOHNIE METAB OLIC PANEL GFR >60 Refer ence Range : [place] ge GFR Healt hy Adult : >60 mL/mi n/1.7 3 m2 Chron ic Kidne y Disea se: 15-60 mL/mi n/1.7 3 m2 Kidne y Failu re: <15/m L/min /1.73 m2 www.n iddk. nih.g ov The MDRD study equat ion has not been valid ated in child josey <18 years of age; pregn ant women ; the elder ly >85 years of age; or in some racia l or ethni c subgr oups, such as Hispa nics. Outsi de the valid ated jacy eters , estim ated GFR is less accur ate, requi ring clini jewel judgm ent on a case- by-ca se basis . Clini jewel inter preta tion for other races and ages must be made by the clini mayuri. The MDRD study equat ion has not been valid ated for the evalu ation of serum creat inine relat ed to nutri alma l statu s or medic ation usage . For perso ns <18 years of age, a pedia tric GFR calcu latdanica is avail able on the [facility] websi te: https ://eric jenkins.ino wu/pr ofess ional s/kdo qi/gf r_cal culat or Not Available [facility] (Lab) [address] [place], [address], 07/28/2023 22:01:14 07/28/19 24 07/28/2023 COMPR EHENS JOHNIE METAB OLIC PANEL alkaline phosphatase 71 U/L 38-126 Not Available [facility] (Lab) [address] [place], [address], 07/28/2023 22:01:14 07/28/19 24 07/28/2023 COMPR EHENS JOHNIE METAB OLIC PANEL alanine aminotransfe rase 18 U/L 0-35 Not Available [facility] (Lab) [address] [place], [address], 07/28/2023 22:01:14 07/28/19 24 07/28/2023 COMPR EHENS JOHNIE METAB OLIC PANEL aspartate aminotransfe rase 27 U/L 15-37 Not Available [facility] (Lab) [address] [place], [address], 07/28/2023 22:01:14 07/28/19 24 07/28/2023 COMPR EHENS JOHNIE METAB OLIC PANEL bilirubin, total 0.50 mg/dL 0.20-1 .30 Not Available [facility] (Lab) [address] [place], [address], 07/28/2023 22:01:14 07/28/19 24 07/28/2023 COMPR EHENS JOHNIE METAB OLIC PANEL calcium 9.8 mg/dL 8.4-10 .2 Not Available [facility] (Lab) [address] [place], [address], 07/28/2023 22:01:14 07/28/19 24 07/28/2023 COMPR EHENS JOHNIE METAB OLIC PANEL total protein 7.2 g/dL 6.3-8. 2 Not Available [facility] (Lab) [address] [place], [address], 07/28/2023 22:01:14 07/28/19 24 07/28/2023 COMPR EHENS JOHNIE METAB OLIC PANEL albumin 4.8 g/dL 3.0-4. 4 high Not Available [facility] (Lab) [address] [place], [address], 07/28/2023 22:01:14 07/28/19 24 07/28/2023 COMPR EHENS JOHNIE METAB OLIC PANEL globulin 2.4 g/dL 2.6-4. 2 low Not Available [facility] (Lab) [address] [place], [address], 07/28/2023 22:01:14 07/28/19 24 07/28/2023 COMPR EHENS JOHNIE METAB OLIC PANEL A/G ratio 2.0 ratio 1.0-2. 0 Not Available [facility] (Lab) [address] [place], [address], 07/28/2023 22:01:14 07/28/19 24 07/28/2023 LIPID PANEL cholesterol 220 mg/dL 140-19 9 high NIH SALMA NSUS RECOM MENDA TION FOR REINA STERO L: ADULT CHILD LOW RISK: <200 <170 BORDE RLINE : <200- 239 ----- HIGH RISK: >240 >200 Not Available [facility] (Lab) [address] [place], [address], 07/28/2023 22:01:19 07/28/19 24 07/28/2023 LIPID PANEL triglyceride s 133 mg/dL 0-150 NIH SALMA NSUS REPOR T RECOM MENDA TION FOR TRIGL YCERI ADRI: ADULT CHILD LOW RISK: <150 ----- BODER LINE: 150-1 99 ----- HIGH RISK: >200 ----- Not Available [facility] (Lab) [address] [place], [address], 07/28/2023 22:01:19 07/28/19 24 07/28/2023 LIPID PANEL HDL cholesterol 46 mg/dL 40- Not Available [facility] (Lab) [address] [place], [address], 07/28/2023 22:01:19 07/28/19 24 07/28/2023 LIPID PANEL LDL cholesterol, calculated 147 mg/dL 0-130 high NIH SALMA NSUS REPOR T RECOM MENDA TIONS FOR LDL: ADULT CHILD LOW RISK <130 <110 (OPTI MAL LDL) <100 ----- BORDE RLINE : 130-1 59 ----- HIGH RISK: >160 >130 A TRIGL YCERI DE RESUL T >400 INVAL IDATE S THE CALCU LATIO N FOR LDL FRACT IONAT ION - THE LDL RESUL T WILL NOT BE REPOR ADRIAN. Not Available [facility] (Lab) [address] [place], [address], 07/28/2023 22:01:19 07/28/19 24 07/28/2023 T3 FREE free T3 2.8 pg/mL 2.77-5 .27 Not Available [facility] (Lab) [address] [place], [address], 07/28/2023 22:16:17 07/28/19 24 07/28/2023 VITAM IN D 25-HY DROXY vd25oh 50.5 NG/mL 30-100 Vitam in D Statu s: Defic ient: <20 ng/mL Insuf ficie nt: 20-29 ng/mL Suffi cient : 30-10 0 ng/mL Not Available [facility] (Lab) [address] [place], [address], 07/28/2023 22:23:06 07/28/19 24 07/28/2023 TSH thyroid-stim ulating hormone 2.410 uIU/m L 0.465- 4.680 Not Available [facility] (Lab) [address], [place], [address], 07/28/2023 22:29:41 08/04/19 24 08/04/2023 scree lita breas t pamela, bilat [facility] [address] [facility] [address], [place] [address] Patien t Name: ROSALBA MUSE Access ion #: [id number] Sex: F : 1945 1 Dictat ed By: Katina James Attend ing Physic melanie: ERASMO CONTRERAS ER Orderi ng Physic melanie: ERASMO CONTRERAS ER Exam Date: 2023 13:44 PM Exam Name: MG SCRN BREAST PAMELA BILAT Admitt ing Diagno sis(es ): SCREEN ING MAMMOG RAPHAEL WITH TOMOSY NTHESI S: REASON FOR EXAM: screen ing mammog raphael COMPAR JANAE: None TECHNI QUE: Bilate ral CC and MLO views obtain ed. Images were obtain ed using a Digita l Tomosy nthesi s Unit. Standa rd 2D and 3D Tomosy nthesi s images were review ed. FINDIN GS: BREAST COMPOS ITION: There are scatte red areas of fibrog landul ar densit y in the bilate ral breast s. In the right breast , no asymme trical parenc hymal patter n, cheryl ectura l distor tion, pleomo rphic microc alcifi cation s or masses . In the left breast , no asymme trical parenc hymal patter n, cheryl ectura l distor tion, pleomo rphic microc alcifi cation s or masses . IMPRES EFREM: No findin gs of malign isaac. Recomm end annual mammog raphael. BIRADS : 2 - Benign Electr onical ly Signed by: Katina James at 2023 14:35: 53 PM Page 1 [facility] (Imaging) [address], [place], [address], 08/05/2023 14:18:39 08/05/19 24 08/04/2023 bone densi ty [facility] [address] [facility] [address], [place] [address] Patien t Name: ROSALBA MUSE Access ion #: [id number] Sex: F : 1945 1 Dictat ed By: Tim Madden Attend ing Physic melanie: ERASMO CONTRERAS 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 ------ ------ ------ ------ ------ ------ ------ ------ ----- *FRAX versio n 3.08. Fractu re probab ility calcul ated for an untrea adrian patien t. Fractu re probab ility may be lower if the patien t has receiv ed treatm ent. T-scor e: compar janae by sarah quiroz (SONNY) to a young adult popula tionbessy for sex and ethnic ity (used for postme nopaus al women and men >50 years) and classi fied by WHO criter ia. -1.0: normal <-1.0 to >-2.5: osteop enia -2.5: osteop orosis -2.5 plus fragil ity fractu re: severe osteop orosis Page 1 [facility] [address] [place] [address] Patien t Name: ROSALBA MUSE Access ion #: [id number] Sex: F : 1945 1 Dictat ed By: Tim Madden Attend ing Physic melanie: BETTE GARY ng Physic melanie: ERASMO CONTRERAS ER Exam Date: 2023 13:44 PM Exam Name: XR DEXA-H IPS PELVIS SPINE Admitt ing Diagno sis(es ): Z-scor e: compar ed by SD to an age, sex, and ethnic ity popula tion (used for premen opausa l women, men <50 years, and childr en instea d of T-scor e WHO criter ia 4) <-2.0: below expect ed range/ low bone densit y for age, and a cause should be sought Electr onical ly Signed by: Tim Madden at 2023 07:30: 56 AM Page 2 [email or web address] [facility] ([facility]) [address] [place], [address], 08/18/2023 08:25:03 Result Notes None recorded. Problems Name Problem SNOMED Code Status Onset Date Resolution Date Notes Provider Name and Address Organization Details Recorded Time Acute bronchiti s [id number] Completed Not Available [facility] 15:15:45 Asthma [id number] Active Not Available [facility] [facility] 3 15:15:46 Conjuncti eusebio hemorrhag e [id number] Completed Not Available [facility] 3 15:15:46 Headache 88075217 Completed Not Available [facility] 3 15:15:46 Anemia 861651757 Active Not Available [facility] 3 15:15:47 Malaise and fatigue 931602608 Completed Not Available [facility] 3 15:15:47 Low back pain 771967718 Active Not Available [facility] 3 15:15:47 Acute asthma 699157638 Completed Juwan Contreras MD [address] [facility], [place], [address] , [facility] [employer] [facility] 5 11:52:20 Injury of toe 887257618 Completed Not Available [facility] 3 15:15:47 Bronchiti s 82289623 Completed Not Available [facility] 3 15:15:47 Neuropath y 881580306 Active Not Available [facility] 3 15:15:48 Rosacea 669839890 Active Not Available [facility] 3 15:15:48 Hypothyro idism 87962571 Active Not Available [facility] 3 15:15:48 Lichen planus 6598870 Completed Not Available [facility] 3 15:15:49 Anxiety 82603920 Active Not Available [facility] 3 15:15:49 Atrial fibrillat ion 59091659 Active Not Available [facility] 3 15:15:49 Upper respirato ry infection 47750307 Completed Juwan Contreras MD [address], [facility] [address], [place], [address] , [facility] [employer] [facility] 5 11:52:45 Hyperlipi demia 46454550 Active Not Available [facility] 3 15:15:49 Essential hypertens ion 27771853 Active Not Available [facility] 3 15:15:50 Urinary tract infectiou s disease 25325550 Completed Not Available [facility] 3 15:15:50 Constipat ion 70111624 Completed 201705/19/2017 Juwan Contreras MD [address] [facility], [facility] [address], [place], [address] , [facility] [employer] [facility] 5 11:55:25 Hypertens johnie disorder 20508274 Active 2018 Not Available [facility] 3 15:15:48 Osteoporo sis 60409012 Active 2018 Not Available [facility] 3 15:15:50 Squamous cell carcinoma of skin 148254268 Active 2019 Not Available [facility] 3 15:15:46 Adult health examinati on Active 2020 Not Available [facility] 3 15:15:46 Overactiv e urinary bladder 279815639 Active 2020 Not Available [facility] 3 15:15:50 Hearing loss 37139090 Active 2021 Not Available [facility] 3 15:15:46 Vitamin D deficienc y 55632683 Active 2021 Not Available [facility] 3 15:15:48 Prediabet es 174591233 Active 2021 Not Available [facility] 3 15:15:50 Acute urinary tract infection 374194445 Completed 202109/18/2021 Not Available [facility] 3 15:15:48 Otalgia 77392361 Completed 202109/18/2021 Not Available [facility] 3 15:15:46 Pain of left temporoma ndibular joint 56282041492 166473 Active 2021 Not Available [facility] 3 15:15:45 Ganglion cyst of left hand 32327041530 9105 Completed 202107/19/2024 Juwan Contreras MD [address], [address], [place], [address] , [employer] [facility] [employer] 5 11:53:45 Candidias is of mouth 81457010 Completed 202207/19/2024 Juwan Contreras MD [address], [address], [place], [address] , [employer] [facility] [employer] 5 11:53:07 Cough 86892132 Active 2022 Juwan Contreras MD [address], [address], [place], [address] , [facility] [facility] [employer] [facility] 5 11:53:15 Allergic rhinitis 30949445 Active 2023 Juwan Contreras MD [address], [address], [place], [address] , [employer] 5 11:53:40 Constipat ion 37911659 Completed 202307/19/2024 Juwan Contreras MD [address] [facility], [address], [place], [address] , [employer] 5 11:55:25 Constipat ion 24961932 Active 2024 Juwna Contreras MD [address] [facility], [place], [address] , [employer] 5 11:55:25 Problem Notes None recorded. Procedures Surgical History Date Name Laterality Status Provider Name and Address Organization Details Recorded Time 12/16/19 24 Medicare Wellness CPT Code, subsequent completed Rtu Perez RN [facility] [email or web address] 12/16/2023 13:00:27 12/16/19 24 Advanced Care Planning completed Rut Perez RN [facility] [employer] 12/16/2023 13:32:32 12/02/19 21 Most Recent Bone Density completed Not Available [facility] 05/29/2022 15:13:49 09/06/19 16 Date of Last Colonoscopy completed Not Available [facility] 05/29/2022 15:13:49 Total hysterectomy completed Not Available [facility] 05/29/2022 15:13:50 Tonsillectomy completed Not Available [facility] 05/29/2022 15:13:50 CLIP [employer]ING [employer] Procedure completed Not Available [facility] 05/29/2022 15:13:50 Knee Surgery completed Not Available [facility] 05/29/2022 15:13:50 Cholecystectomy completed Not Available [facility] 05/29/2022 15:13:50 Tubal Ligation completed Not Available [facility] 05/29/2022 15:13:50 Imaging Results None recorded. Procedure Notes None recorded. Medical Equipment None Reported. Allergies Allergen ID Allergen Name Allergen Category Reaction Reaction Severity Criticality Documentation Date Start Date Code Code System Note Provider Name and Address Organization Details Recorded Time 02715 Substance with sulfonami de structure and antibacte rial mechanism of action (substanc e) medicatio n Not available Not available Not available 05/29/2022 99229 [id number] SNOMED Not Available [facility] 15:18:28 Medications Name Sig Start Date Stop Date Status Note LastModified by Organization Details LastModified Time cyclobenz aprine 10 mg tablet active Not Available Not Available No t Available amoxicill in 500 mg capsule Take 1 capsule 3 times a day by oral route for 7 days. 01/03 completed Not Available Not Available Not Available [place] Thyroid 60 mg tablet TAKE 1 TABLET BY MOUTH EVERY DAY 06/20 completed Not Available Not Available Not Available haloperid ol 0.5 mg tablet BRING MEDS TO APPOINTM ENT TAKE 1 2 TABS BY MOUTH ONCE CALLED BACK INTO PROCEDUR E ROOM active Not Available Not Available No t Available clotrimaz ole 10 mg royal Take 1 tablet 5 times a day by oral route. 07/19 completed Not Available Not Available Not Available terconazo le 0.4 % vaginal cream 10/28 completed Not Available Not Available Not Available prednison e 10 mg tablet TAKE 3 TABS FOR 3 DAYS 2 TABS FOR 3 DAYS AND 1 TAB FOR 3 DAYS active Not Available Not Available No t Available doxycycli ne hyclate 100 mg capsule Take 1 capsule twice a day by oral route for 7 days. 05/16 completed Not Available Not Available Not Available albuterol sulfate 2.5 mg/3 mL (0.083 %) solution for nebulizat ion INHALE THE CONTENTS OF ONE VIAL VIA NEBULIZE R 4 TIMES A DAY 07/19 completed Not Available Not Available Not Available Pacerone 200 mg tablet 05/14 completed Not Available Not Available Not Available lisinopri l 20 mg-hydroc hlorothia zide 12.5 mg tablet TAKE 1 TABLET BY MOUTH EVERY DAY 07/19 completed D/c due to dry mouth. Only should have Lisinopr il 20mg Not Available Not Available Not Available azithromy charis 250 mg tablet Take 2 TABLET EVERY DAY by oral route for 1 day. then 1 tab a day for 4 days active Not Available Not Available No t Available diltiazem CD 180 mg capsule,e xtended release 24 hr TAKE 1 CAPSULE BY MOUTH EVERY NIGHT active Not Available Not Available No t Available ofloxacin 0.3 % eye drops active Not Available Not Available Not Available fluconazo le 150 mg tablet TAKE 1 TABLET BY MOUTH ONCE A SINGLE DOSE 08/16 completed Not Available Not Available Not Available benzonata te 200 mg capsule Take 1 capsule 3 times a day by oral route. 2020 active Not Available Not Available Not Avai lable cephalexi n 250 mg capsule 08/08 completed Not Available Not Available Not Available hydrocodo ne 5 mg-acetam inophen 325 mg tablet 11/20 completed Not Available Not Available Not Available fluocinon robert 0.05 % topical gel APPLY TO AFFECTED AREAS EVERY MORNING AND EVENING NEEDED 08/16 completed Not Available Not Available Not Available Keflex 500 mg capsule Take 1 capsule every 6 hours by oral route for 7 days. 11/10 completed Not Available Not Available Not Available diltiazem CD 240 mg capsule,e xtended release 24 hr active Not Available Not Available Not Available Levaquin 750 mg tablet Take 1 tablet every day by oral route for 7 days. 09/03 completed Not Available Not Available Not Available lisinopri l 20 mg tablet TAKE 1 TABLET BY MOUTH EVERY DAY active Not Available Not Available No t Available ondansetr on HCl 4 mg tablet Take 1 tablet 3 times a day by oral route. 09/19 completed Not Available Not Available Not Available prednison e 20 mg tablet take one tab a day x 5 days 07/19 completed Not Available Not Available Not Available alendrona te 70 mg tablet TAKE 1 TABLET BY MOUTH ONCE A WEEK 09/16 completed Not Available Not Available Not Available fluoroura cil 5 % topical cream APPLY TOPICALL Y TWICE DAILY TO CHEST LESION FOR A TOTAL OF 6 WEEKS active Not Available Not Available No t Available clobetaso l 0.05 % topical cream APPLY A THIN LAYER TO THE AFFECTED AREA(S) BY TOPICAL ROUTE 2 TIMES PER DAY 11/29 completed needs solution for ins. to cover not the cream Not Available Not Available Not Available triamcino lone acetonide 0.5 % topical ointment APPLY 1 APPLICAT ION TOPICALL Y TWICE DAILY FOR 2 WEEKS 08/16 completed Not Available Not Available Not Available aspirin 81 mg tablet,de layed release Take 1 tablet every day by oral route. 2013 active Not Available Not Available Not Avai lable triamcino lone acetonide 0.1 % topical cream APPLY A THIN LAYER TO THE AFFECTED AREA(S) BY TOPICAL ROUTE 2 TIMES PER DAY 09/19 completed Not Available Not Available Not Available dexametha sone 0.5 mg/5 mL oral solution SWISH 5ML IN THE MOUTH FOR 30 SECONDS THEN SPIT OUT TWICE A DAY FOR STOMATIT IS FOR 7 DAYS active Not Available Not Available No t Available Kenalog 40 mg/mL suspensio n for injection Take 1 mL by injectio n route. 04/02 completed Not Available Not Available Not Available terconazo le 80 mg vaginal supposito ry 10/28 completed Not Available Not Available Not Available meloxicam 7.5 mg tablet TAKE 1 TABLET BY MOUTH EVERY DAY 07/27 completed Not Available Not Available Not Available citalopra m 20 mg tablet TAKE ONE TABLET BY MOUTH EVERY DAY active Not Available Not Available No t Available prednisol one acetate 1 % eye drops,sil pension active Not Available Not Available Not Available lorazepam 0.5 mg tablet Take 1 tablet 3 times a day by oral route as needed. 08/04 completed Not Available Not Available Not Available triamcino lone acetonide 0.1 % dental paste APPLY TO RASH AREAS INSIDE MOUTH TWICE A DAY X4 WEEKS FOR FLARES (DO NOT GET ON FACE) active Not Available Not Available No t Available benzonata te 100 mg capsule Take 1 capsule 3 times a day by oral route for 5 days. active Not Available Not Available No t Available levothyro xine 50 mcg tablet TAKE 1 TABLET BY MOUTH EVERY DAY active Not Available Not Available No t Available tacrolimu s 0.1 % topical ointment APPLY TO RASH AREAS ON ARM/FACE TWICE DAILY WHEN FLARED, THEN USE TWICE A WEEK FOR MAINTENA NCE 08/16 completed Not Available Not Available Not Available oseltamiv ir 75 mg capsule Take 1 capsule twice a day by oral route for 5 days. 05/21 completed Not Available Not Available Not Available clotrimaz ole-betam ethasone 1 %-0.05 % topical cream 11/20 completed Not Available Not Available Not Available lisinopri l 10 mg tablet one tablet daily active Not Available Not Available No t Available warfarin 5 mg tablet 05/14 completed Not Available Not Available Not Available metronida zole 0.75 % topical cream active Not Available Not Available Not Available Advair Diskus 250 mcg-50 mcg/dose powder for inhalatio n INHALE ONE PUFF BY MOUTH TWICE A DAY active Not Available Not Available No t Available Combivent 18 mcg-103 mcg/actua tion aerosol inhaler Inhale 2 puffs every 4-6 hours by inhalati on route for 30 days. active Not Available Not Available No t Available Advair Diskus 500 mcg-50 mcg/dose powder for inhalatio n INHALE 1 DOSE BY MOUTH TWICE DAILY active Not Available Not Available No t Available gabapenti n 300 mg capsule TAKE ONE CAPSULE BY MOUTH EVERY MORNING AND TAKE TWO CAPSULES BY MOUTH EVERY EVENING active Not Available Not Available No t Available omeprazol e 20 mg capsule,d elayed release TAKE 1 CAPSULE BY MOUTH EVERY DAY AROUND SUPPER TIME active Not Available Not Available No t Available diclofena c sodium 75 mg tablet,de layed release active as needed Not Available Not Available Not Available monteluka st 10 mg tablet TAKE 1 TABLET BY MOUTH EVERY DAY active Not Available Not Available No t Available furosemid e 20 mg tablet Take 1 tablet every day by oral route in the morning. 09/19 completed Not Available Not Available Not Available clobetaso l 0.05 % topical ointment APPLY TO AFFECTED AREA EVERY 48 HOURS active Not Available Not Available No t Available warfarin 1 mg tablet Take 1 tablet every day by oral route. active Not Available Not Available No t Available estradiol 0.01% (0.1 mg/gram) vaginal cream INSERT 1 GRAM VAGINALL Y TWICE WEEKLY active Not Available Not Available No t Available methylpre dnisolone 4 mg tablets in a dose pack TAKE 6 TABLETS ON DAY 1 DIRECTED ON PACKAGE AND DECREASE BY 1 TAB EACH DAY FOR A TOTAL OF 6 DAYS 12/06 completed Not Available Not Available Not Available Cipro 250 mg tablet Take 1 tablet twice a day by oral route for 5 days. 03/01 completed Not Available Not Available Not Available clobetaso l 0.05 % scalp solution APPLY TO THE AFFECTED SCALP AREA BY TOPICAL ROUTE 2 TIMES PER DAY IN THE MORNING AND EVENING 11/10 completed Not Available Not Available Not Available Carac 0.5 % topical cream active Not Available Not Available Not Available albuterol sulfate concentra te 5 mg/mL(0.5 %) solution for nebulizat ion Inhale 0.5 mL every 4-6 hours by inhalati on route as needed. active Not Available Not Available No t Available fluticaso ne propionat e 50 mcg/actua tion nasal spray,sil pension Inhale 2 sprays every day by intranas al route for 30 days. 09/04 completed Not Available Not Available Not Available amoxicill in 875 mg-potass ium clavulana te 125 mg tablet Take 1 tablet every 12 hours by oral route for 7 days. 03/21 completed Not Available Not Available Not Available neomycin 3.5 mg/g-poly myxin B 10,000 unit/g-de xameth 0.1 % eye oint active Not Available Not Available Not Available Crestor 10 mg tablet active Not Available Not Available Not Available Spiriva with [employer] r 18 mcg and inhalatio n capsules Inhale 1 capsule every day by inhalati on route. 06/20 completed Not Available Not Available Not Available nitrofura ntoin monohydra te/macroc rystals 100 mg capsule TAKE 1 CAPSULE BY MOUTH EVERY 12 HOURS 12/06 completed Not Available Not Available Not Available duloxetin e 30 mg capsule,d elayed release TAKE 1 CAPSULE BY MOUTH EVERY DAY active Not Available Not Available No t Available ibandrona te 150 mg tablet TAKE 1 TABLET BY MOUTH ONCE EVERY MONTH active Not Available Not Available No t Available ProAir HFA 90 mcg/actua tion aerosol inhaler INHALE TWO PUFFS BY MOUTH EVERY 4 HOURS NEEDED FOR 30 DAYS 01/27 completed Not Available Not Available Not Available GaviLyte- G 236 gram-22.7 4 gram-6.74 gram-5.86 gram oral solution active Not Available Not Available Not Available Combivent Respimat 20 mcg-100 mcg/actua tion solution for inhalatio n INHALE 1 PUFF BY MOUTH 4 TIMES DAILY NEEDED active Not Available Not Available No t Available Magnesium (oxide/AA chelate) 500mg daily 02/26 completed Not Available Not Available Not Available Incruse Ellipta 62.5 mcg/actua tion powder for inhalatio n Inhale 1 puff every day by inhalati on route as directed for 30 days. 06/20 completed Not Available Not Available Not Available Shingrix (PF) 50 mcg/0.5 mL intramusc ular suspensio n, kit PHARMACI ST ADMINIST ERED IMMUNIZA TION ADMINIST ERED AT TIME OF DISPENSI NG 05/19 completed Not Available Not Available Not Available clobetaso l 0.025 % topical cream 10/28 completed Not Available Not Available Not Available Flublok Quad (PF) 180 mcg (45 mcg x 4)/0.5 mL IM syringe PHARMACI ST ADMINIST ERED IMMUNIZA TION ADMINIST ERED AT TIME OF DISPENSI NG 05/19 completed Not Available Not Available Not Available Fluzone High-Dose Quad (PF) 240 mcg/0.7 mL IM syringe PHARMACI ST ADMINIST ERED IMMUNIZA TION ADMINIST ERED AT TIME OF DISPENSI NG 01/27 completed Not Available Not Available Not Available Trelegy Ellipta 200 mcg-62.5 mcg-25 mcg powder for inhalatio n INHALE 1 PUFF BY MOUTH EVERY DAY active Not Available Not Available No t Available Paxlovid 300 mg (150 mg x 2)-100 mg tablets in a dose pack TAKE DIRECTED 05/16 completed Not Available Not Available Not Available Vitals Date Recorded Body height Body mass index (BMI) Body weight Body temperature Heart rate Oxygen saturation Oxygen saturation in Arterial blood by Pulse oximetry Systolic And Diastolic Provider Name and Address Organization Details Last Updated DateTime 4 152.4 cm 24.2 kg/m2 42857.4 5 g 97.4 [degF] 85 /min 97 % 97 % 142/70 mm[Hg] JESSICA Dutta - [facility] [employer] [facility] 4 14:34:28 Date Recorded Body height Body mass index (BMI) Body weight Body temperature Heart rate Oxygen saturation Oxygen saturation in Arterial blood by Pulse oximetry Systolic And Diastolic Provider Name and Address Organization Details Last Updated DateTime 5 152.4 cm 23.2 kg/m2 80902.4 9 g 97.2 [degF] 79 /min 97 % 97 % 118/76 mm[Hg] Kezia Temi carrillo [facility] [employer] [facility] 5 11:15:09 Date Recorded Body height Body mass index (BMI) Body weight Body temperature Oxygen saturation Oxygen saturation in Arterial blood by Pulse oximetry Heart rate Systolic And Diastolic Provider Name and Address Organization Details Last Updated DateTime 4 152.4 cm 22.8 kg/m2 61587.9 5 g 97.9 [degF] 99 % 99 % 67 /min 120/60 mm[Hg] Rekha Shipman [facility] 4 11:45:11 Date Recorded Systolic And Diastolic Provider Name and Address Organization Details Last Updated DateTime 12/16/2023 120/60 mm[Hg] Juwan Contreras MD [address] [place] [address], [place], [address], [facility] [employer] [facility] 12/16/2023 12:49:07 Date Recorded Body height Body mass index (BMI) Body weight Body temperature Heart rate Oxygen saturation Oxygen saturation in Arterial blood by Pulse oximetry Provider Name and Address Organization Details Last Updated DateTime 4 152.4 cm 23.6 kg/m2 83324.6 8 g 97 [degF] 79 /min 96 % 96 % Lorri bone Jr [facility] [employer] [facility] 4 12:42:23 Date Recorded Pain severity - 0-10 verbal numeric rating [Score] - Reported Provider Name and Address Organization Details Last Updated DateTime 12/16/2023 0 Rut Perez RN [facility] [employer] [facility] 12/16/2023 13:01:08 Date Recorded Body height Body mass index (BMI) Body weight Body temperature Heart rate Oxygen saturation Oxygen saturation in Arterial blood by Pulse oximetry Systolic And Diastolic Provider Name and Address Organization Details Last Updated DateTime 4 152.4 cm 23.6 kg/m2 25323.6 8 g 97.2 [degF] 68 /min 96 % 96 % 120/60 mm[Hg] Lorri bone Jr [facility] [employer] [facility] 4 14:14:09 Social History Question Answer Notes LastModified by Organization Details LastModified Time Tobacco Smoking Status Former Smoker quit in 1999 Rut Perez RN [facility] [place], [place] - [facility] 12/16/2023 13:02:36 Do You Have An Advance Directive? No Paperwork Provided 12/16/2023 [email or web address] Information not available 12/16/2023 Are You Blind Or Do You Have Difficulty Seeing? No [id number] Information not available 05/29/2022 Is Blood Transfusion Acceptable In An Emergency? Yes [email or web address] Information not available 12/16/2023 What Is Your Level Of Caffeine Consumption? Moderate [id number] Information not available 05/29/2022 How Much Tobacco Do You Chew? None [id number] Information not available 05/29/2022 In The 14 Days Before Symptom Onset, Have You Had Close Contact With A Laboratory-conf irmed COVID-19 While That Case Was Ill? No Not Applicable [email or web address] Information not available 12/16/2023 In The 14 Days Before Symptom Onset, Have You Had Close Contact With A Person Who Is Under Investigation For COVID-19 While That Person Was Ill? No [id number] Information not available 05/29/2022 Are You Deaf Or Do You Have Serious Difficulty Hearing? Yes [id number] Information not available 05/29/2022 What Type Of Diet Are You Following? REGULAR Weight Watchers [id number] Information not available 05/29/2022 Which Illicit Or Recreational Drugs Have You Used? None [id number] Information not available 05/29/2022 What Is The Highest Grade Or Level Of School You Have Completed Or The Highest Degree You Have Received? [id number] [email or web address] Information not available 12/16/2023 How Many Days Of Moderate To Strenuous Exercise, Like A Brisk Walk, Did You Do In The Last 7 Days? 3 [email or web address] Information not available 12/16/2023 On Those Days That You Engage In Moderate To Strenuous Exercise, How Many Minutes, On Average, Do You Exercise? 30 [email or web address] Information not available 12/16/2023 Have There Been Any Changes To Your Family Or Social Situation? No [id number] Information not available 05/29/2022 What Is The Fluoride Status Of Your Home? Fluoridated [id number] Information not available 05/29/2022 When Did You Quit Smoking? 16+yearssincelastc igarette [id number] Information not available 05/29/2022 Are There Any Guns Present In Your Home? No [email or web address] Information not available 12/16/2023 Do You Use Insect Repellent Routinely? Yes [email or web address] Information not available 12/16/2023 Where Do You Live? SingleLevelHouse [id number] Information not available 05/29/2022 Presence Of Domestic Violence No [email or web address] Information not available 12/16/2023 Guns Present In The Home? No [email or web address] Information not available 12/16/2023 Are You Able To Care For Yourself? Yes [email or web address] Information not available 12/16/2023 Are You Blind Or Do Yo Have Difficulty Seeing? No [email or web address] Information not available 12/16/2023 Are You Deaf Or Do You Have Serious Difficulty Hearing? No [email or web address] Information not available 12/16/2023 General Stress Level? Moderate [email or web address] Information not available 12/16/2023 Live Alone Of With Others? 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 12/16/2023 [email or web address] Information not available 12/16/2023 How Many Children Do You Have? 2 [email or web address] Information not available 12/16/2023 Do You Have Any Pets? No [email or web address] Information not available 12/16/2023 What Is Your Relationship Status? Single [email or web address] Information not available 12/16/2023 Do You Use Your Seat Belt Or Car Seat Routinely? Yes [id number] Information not available 05/29/2022 Are You Sexually Active? No [email or web address] Information not available 12/16/2023 Do You Have Smoke And Carbon Monoxide Detectors In Your Home? Yes [id number] Information not available 05/29/2022 At What Age Did You Start Smoking Tobacco? 18 [email or web address].[id number] [id number] Information not available 05/29/2022 Are You Passively Exposed To Smoke? No [email or web address] Information not available 12/16/2023 Are There Any Smokers In Your House? No [email or web address] Information not available 12/16/2023 How Much Tobacco Do You Smoke? 2 PPD [id number] Information not available 05/29/2022 What Types Of Sporting Activities Do You Participate In? None [email or web address] Information not available 12/16/2023 Do You Use Sunscreen Routinely? Yes [id number] [id number] Information not available 05/29/2022 Has Tobacco Cessation Counseling Been Provided? No [email or web address] Information not available 12/16/2023 Have You Recently Traveled Abroad? No [email or web address] Information not available 12/16/2023 Do You Have Difficulty Walking Or Climbing Stairs? No MIGRATION.[id number] [id number] Information not available 05/29/2022 Do You Have Any Dietary Restrictions? No [email or web address] Information not available 12/16/2023 Sex: Female Functional Status Question Answer Note LastModified by [employer] Details LastModified Time Do you use any illicit or recreational drugs? No [email or web address] Information not available 12/16/2023 Do you or have you ever used any other forms of tobacco or nicotine? No [email or web address] Information not available 12/16/2023 What is your level of alcohol consumption? None [id number] Information not available 05/29/2022 Are you currently employed? No [email or web address] Information not available 12/16/2023 Do you have transportation difficulties? No [id number] 026 Information not available 05/29/2022 Are you able to walk independently without assistance or assistive devices? YESWOREST [id number] [id number] Information not available 05/29/2022 Do you have difficulty doing errands alone? No [id number] 026 Information not available 05/29/2022 Are you able to care for yourself independently? Yes [id number] [id number] Information not available 05/29/2022 What is your occupation? Retired [id number] [id number] Information not available 05/29/2022 Do you have difficulty dressing, bathing, grooming, or toileting? No [id number] [id number] Information not available 05/29/2022 What is your exercise level? Occasional [id number] [id number] Information not available 05/29/2022 Mental Status Question Answer Note LastModified by [employer] Details LastModified Time Do you feel stressed (tense, restless, nervous, or anxious, or unable to sleep at night)? [id number] [email or web address] Information not available 12/16/2023 Do you have difficulty concentrating, remembering or making decisions? No [id number] Information not available 05/29/2022 Family History Relationship Description Onset Age of this Age Resolved Age Notes LastModified by Organization Details LastModified Time Brother Essential hypertension [id number] Not available 05/29/2022 15:13:50 Brother Heart disease [id number] Not available 05/29/2022 15:13:50 Sister Essential hypertension [id number] Not available 05/29/2022 15:13:50 Medical History Condition Response URINARY/BLADDER/KIDNEY PROBLEMS Y ANXIETY DISORDER Y HYPERTENSION Y ASTHMA Y HIGH CHOLESTEROL / HYPERLIPIDEMIA Y Gynecological History Statement/Question Response Date of Last Mammogram 12/01/2020 Date of Last Colonoscopy 09/06/2015 Most Recent Bone Density 12/01/2020 Obstetrics History GPAL:G 0 P 0 0 0 0 Immunizations Vaccine Type Date Status Note Provider Nam e and Address Organization Details Recorded Time influenza nasal, unspecified formulation 4 completed GEORGES Miranda - [place] [employer] 01/26/2024 09:11:29 Influenza, high-dose, trivalent, PF 2 completed Not Available [facility] 05/29/2022 15:18:19 Influenza, high-dose, trivalent, PF 1 completed Not Available [facility] 05/29/2022 15:18:19 pneumococcal polysaccharide PPV23 1 completed Not Available [facility] 05/29/2022 15:18:19 COVID-19, mRNA, LNP-S, PF, 30 mcg/0.3 mL dose 1 completed Not Available [facility] 05/29/2022 15:18:20 Influenza, high-dose, quadrivalent, PF 1 completed Not Available [facility] 05/29/2022 15:18:20 SARS-COV-2 (COVID-19) vaccine, UNSPECIFIED 1 completed Not Available [facility] 05/29/2022 15:18:20 SARS-COV-2 (COVID-19) vaccine, UNSPECIFIED 1 completed Not Available [facility] 05/29/2022 15:18:20 Influenza, split virus, quadrivalent, preservative 0 completed Not Available [facility] 05/29/2022 15:18:20 influenza, unspecified formulation 8 completed Not Available [facility] 05/29/2022 15:18:20 pneumococcal polysaccharide PPV23 7 completed Not Available [facility] 05/29/2022 15:18:20 Influenza, high-dose, trivalent, PF 6 completed Not Available [facility] 05/29/2022 15:18:21 zoster, unspecified formulation 9 completed Not Available [facility] 05/29/2022 15:18:21 Influenza, split virus, quadrivalent, preservative 9 completed Not Available [facility] 05/29/2022 15:18:21 Influenza, split virus, quadrivalent, preservative 8 completed Not Available [facility] 05/29/2022 15:18:21 Pneumococcal Conjugate, unspecified formulation 7 completed Not Available [facility] 05/29/2022 15:18:21 Tdap 6 completed Not Available [facility] 05/29/2022 15:18:21 Pneumococcal Conjugate, unspecified formulation 6 completed Not Available [facility] 05/29/2022 15:18:21 Influenza, high-dose, trivalent, PF 7 completed Not Available [facility] 05/29/2022 15:18:22 Td (adult), 2 Lf tetanus toxoid, preservative free, adsorbed 6 completed Not Available [facility] 05/29/2022 15:18:22 Influenza, split virus, trivalent, preservative 4 completed Not Available [facility] 05/29/2022 15:18:23 Influenza, split virus, trivalent, preservative 5 completed Not Available [facility] 05/29/2022 15:18:23 Past Encounters Encounter ID Performer Location Encounter Start Date Encounter Closed Date Diagnosis/Indication Diagnosis SNOMED-CT Code Diagnosis ICD10 Code Diagnosis IMO Codes Diagnosis Note [id number] Juwan Contreras MD [facility] [address] [place] [address] 06/20/2020 00:00:00 06/20/2020 17:21:27 [id number] Juwan Contreras MD [facility] [address] [place] [address] 08/07/2020 00:00:00 08/07/2020 10:05:26 [id number] Juwan Contreras MD [facility] [address] [place] [address] 08/08/2020 00:00:00 08/08/2020 15:12:04 [id number] Juwan Contreras MD [facility] [address] [place] [address] 09/28/2020 00:00:00 09/28/2020 12:54:46 [id number] Juwan Contreras MD [facility] [address] [place] [address] 12/11/2020 00:00:00 12/11/2020 10:35:00 [id number] Juwan Contreras MD [facility] [address] [place] [address] 01/30/2021 00:00:00 01/30/2021 10:52:59 [id number] Juwan Contreras MD [facility] [address] [place] [address] 03/21/2021 00:00:00 03/21/2021 15:38:30 [id number] Juwan Contreras MD [facility] [address] [place] [address] 07/04/2021 00:00:00 07/04/2021 11:56:09 [id number] Juwan Contreras MD [facility] [address] [place] [address] 08/16/2021 00:00:00 08/16/2021 14:54:44 [id number] Juwan Contreras MD [facility] [address] [facility] [place] [address] 09/03/2021 00:00:00 09/03/2021 15:07:21 [id number] Juwan Contreras MD [facility] [address] [facility] [place] [address] 09/19/2021 00:00:00 09/19/2021 12:19:04 [id number] Juwan Contreras MD [facility] [address] [place] [address] 03/05/2022 00:00:00 03/05/2022 15:02:53 [id number] Juwan Contreras MD [facility] [address] [place] [address] 06/06/2022 14:33:32 06/06/2022 15:15:47 Candidiasis of mouth 21728907 B37.0 possible thrushENT if not better [id number] Juwan Contreras MD [facility] [address] [facility] [place] [address] 07/29/2022 14:22:40 07/29/2022 14:59:26 Essential hypertension 12091922 I10 under control Asthma 184634810 J45.90 9 under control Hypothyroidism 03276752 E03.9 stable Atrial fibrillation 4943 6004 I48.91 s/p ablation, in sinus now Hyperlipidemia 11197578 E78.5 watch diet, does not want meds, Neuropathy 822261239 G62 .9 better with gabapentin Anxiety 47789995 F41.9 stable no meds Anemia 771716593 D64.9 w/u neg, Overactive urinary bladder 939122493 N32.81 BETTER Osteoporosis 87385511 M8 1.0 on ca and vit d Vitamin D deficiency 347 80247 E55.9 on otc Prediabetes 166079516 R7 3.03 diet discussed Hearing loss 37897659 H9 1.93 no change [facility] th examination 843117029 Z00.00 Colonoscop y- 09/13Mammo gram- 11/2020- [facility]A- ne umovax- 10/05/2010 , 04/04/2015 , 05/27/2016 Prevnar 2015 - [facility] -[facility] VID- 06/11/20, 07/09/20 Pain in ri ght lower limb 217949168 M79.210 [id number] Juwan Contreras MD [facility] Internal Med [facility] [address] [facility] [place] [address] 12/23/2022 15:18:53 12/23/2022 15:52:53 Upper respiratory infection 44314608 J06.9 mucinex [id number] Juwan Contreras MD [facility] Internal Med [facility] [address] [facility] [place] [address] 02/26/2023 12:02:07 02/26/2023 12:35:15 Essential hypertension 35607697 I10 under control Hypothyroidism 85354227 E03.9 stable Atrial fibrillation 4943 6004 I48.91 s/p ablation, in sinus now Hyperlipidemia 62867298 E78.5 does not want meds, Neuropathy 886974070 G62 .9 better with gabapentin Anxiety 89886397 F41.9 stable no meds Anemia 200368851 D64.9 w/u neg, Overactive urinary bladder 550985349 N32.81 better Osteoporosis 99877348 M8 1.0 on ca and vit d, wants to wait for the dexa Vitamin D deficiency 347 04403 E55.9 on otc Prediabetes 021376098 R7 3.03 diet discussed Hearing loss 84343778 H9 1.93 no change [facility] th examination 574516809 Z00.00 Colonoscop y- 09/13 Mammogram- 11/2020- [facility]UE DEXA- 11/2020 Pneumovax- 10/05/2010 , 04/04/2015 , 05/27/2016 Prevnar 2015 - [facility]-, 12/2022 COVID- 06/11/20, 07/09/20 [id number] Juwan Contreras MD [facility] Internal Med [facility] [address] [facility] [place] [address] 04/15/2023 14:14:17 04/15/2023 15:10:02 Acute sinusitis 89451757 J01.90 [id number] Juwan Contreras MD [facility] [address] [place] [address] 07/28/2023 11:39:11 07/28/2023 12:16:36 Essential hypertension 55782417 I10 under control Hypothyroidism 29799593 E03.9 stable Atrial fibrillation 4943 6004 I48.91 s/p ablation, in sinus now Hyperlipidemia 91123003 E78.5 does not want meds, Neuropathy 073880888 G62 .9 better with gabapentin Anxiety 06752986 F41.9 stable no meds Anemia 523431533 D64.9 w/u neg, Overactive urinary bladder 001075111 N32.81 better Osteoporosis 90918755 M8 1.0 on ca and vit d, wants to wait for the dexa Vitamin D deficiency 347 44997 E55.9 on otc Prediabetes 273596275 R7 3.03 diet discussed Hearing loss 57155159 H9 1.93 no change Adult heal th examination 725065541 Z00.00 Colonoscop y- 09/13Mammo gram- 06/17/2022 DEXA- 1Pne umovax- 10/05/2010 , 04/04/2015 , 05/27/2016 Prevnar 2015 - [facility] -12/2020, 3COV ID- 06/11/20, 07/09/20 Allergic rhinitis 799927 04 J30.9 meds help Constipation 65903961 K5 9.00 try MiraLax, diet discussed Screening for malignant neoplasm of colon 405462302 Z12.11 had colon polyp in 2016 Postmenopausal state 764 68971 Z78.0 Screening mammography 24 275545 Z12.31 [id number] Juwan Contreras MD [facility] Internal [facility] [address] [place] [address] 12/16/2023 12:22:58 12/16/2023 13:14:02 Essential hypertension 08702147 I10 under control Hypothyroidism 65689343 E03.9 under control Atrial fibrillation 4943 6004 I48.91 s/p ablation, in sinus now Hyperlipidemia 76863224 E78.5 does not want meds, watching diet Neuropathy 263064411 G62 .9 better with gabapentin Anxiety 45381375 F41.9 no more meds needed Anemia 083859260 D64.9 w/u neg, Overactive urinary bladder 224633298 N32.81 better Osteoporosis 30374087 M8 1.0 on ca and vit d and meds restarted Vitamin D deficiency 347 81271 E55.9 on otc Prediabetes 955789118 R7 3.03 diet discussed Hearing loss 19900251 H9 1.93 no change Adult heal th examination 148886189 Z00.00 Colonoscop y- 09/13, 12/09/23Ma mmogram- 4DEXA- 08/04/2023 Pneumovax- 10/05/2010 , 04/04/2015 , 05/27/2016 Prevnar 2015 - [facility] -12/2020, OV ID- 06/11/20, 07/09/20 Allergic rhinitis 717775 04 J30.9 meds help Constipation 24050364 K5 9.00 MiraLax, prn Screening for disorder 608394180 Z13.9 [id number] Juwan Contreras MD [facility] Internal [address] [address] 12/22/2023 14:01:37 12/22/2023 15:26:29 Candidiasis of mouth 37902770 B37.0 possible thrushENT if not better [id number] Juwan Contreras MD [facility] Internal [address] [place] [address] 07/19/2024 10:58:55 07/19/2024 12:11:35 Essential hypertension 68292792 I10 under control Hypothyroidism 50804596 E03.9 under control Atrial fibrillation 4943 6004 I48.91 s/p ablation, in sinus now Hyperlipidemia 23737608 E78.5 does not want meds, watching diet Neuropathy 445836221 G62 .9 better with gabapentin Anxiety 30570837 F41.9 no more meds needed Anemia 809539484 D64.9 w/u neg, Overactive urinary bladder 626841496 N32.81 better Osteoporosis 05637080 M8 1.0 on meds Vitamin D deficiency 347 61073 E55.9 on otc Prediabetes 975076593 R7 3.03 watching diet Hearing loss 61200909 H9 1.93 no change Adult heal th examination 486213831 Z00.00 Colonoscop y- 09/13, 12/09/23Ma mmogram- 4DEXA- 08/04/2023 Pneumovax- 10/05/2010 , 04/04/2015 , 05/27/2016 Prevnar 2015 - [facility] -12/2020, OV ID- 06/11/20, 07/09/20 Allergic rhinitis 995358 04 J30.9 meds help Constipation 95267989 K5 9.00 miralax, prn Screening mammography 24 215671 Z12.31 Health Concerns Section Related Observation LastModified by Organization Detai ls LastModified Time None Recorded Concern Status LastModified by Organization Details LastModified Time None Recorded Advance Directives Directive N: paperwork provided 024 Payers Insurance Date Sequence Insurance Name Policy Number Policy Vidal Covered Member ID Vidal Member ID Guarantor Name 08/18/2024 1 [facility] (MEDICARE REPLACEMENT/A DVANTAGE - PPO) [id number] Dory Adams [id number] Dory Adams 08/04/2024 1 [facility] (MEDICARE REPLACEMENT/A DVANTAGE - HMO) [id number] Dory Adams [id number] Dory Angie Notes Date Note Type Note Provider Name and Address Organization Details Recorded Time 04/15/2023 text/html ROS as noted in the HPI She is here today for breathing issues. Does not know if its her asthma acting up or if its something else. Ever since she had COVID in late Feb her breathing has not been the same. Has been using her nebulizer and her inhalers. she can not take a deep breath at times and at night she coughs and coughs and nothing comes upsoem whezingHas been using OTC meds which are not helping most mess with her b/p Juwan Contreras MD [address] [place] [address], [facility] [address], [place], [address], [facility] 04/15/2023 14:57:58 07/28/2023 text/html Pt is here for routine exam, compliant to medications. HEARING LOSS, USING HEARING AIDS BOTH EARS. C/o pain in her upper back of her thigh for about 3 weeks. Thinks she might have pulled a muscle at the gym she had surgery for ganglion cyst on the left wrist ad swelling is not getting better Asthma- using inhaler regularly, has albuterol neb, using as neededMeds- Combivent 1 p QID PRN, Montelukast 10 mg dailyHTN- controlled with medsMeds- Cartia 180 mg daily, Lisinopril 20 mg/HCTZ 12.5 mg dailyPrediabetes- A1c 6.1 (06/17/22), WAS 5.7, watching diet, doing exercises , labsHypothyroidism- on meds, TSH dueMeds- Levothyroxine 50 mcg dailyAnemia- last Hb 11.8 (07/20), neg w/u, colonoscopy 2015Hyperlipidemia- mild, watching diet, has tried statins with side effects,Anxiety- no meds needed anymoreAtrial fibrillation- s/p ablation, in sinus, no symptoms, cardiology Dr Young , asaOveractive bladder s/p surgery 2015 dr Tamayo, also has seen urology at [facility], symptoms are under controlNeuropathy- most of her symptoms are better with meds, no side effectsMeds- Gabapentin 300 mg 1 AM, 2 PMLichen planus-stable, no medsOsteoporosis- On meds, dexa 12/19, dueMeds- was on Ibandronates/p Hysterectomy feeling leg pain behind the right thigh, goes to gyme, feels like muscle pain Juwan Contreras MD [address] [facility], [facility] [address], [place], [address], [place] [facility] 07/28/2023 12:10:53 12/16/2023 text/html Pt is here for routine exam, compliant to medications.HEARING LOSS, USING HEARING AIDS BOTH EARS.[facility] Asthma- has albuterol neb, using as neededMeds- Combivent 1 p QID PRN, Montelukast 10 mg dailyHTN- controlled with medsMeds- Cartia 180 mg daily, Lisinopril 20 mg/HCTZ 12.5 mg dailyPrediabetes- A1c 6.1 (06/17/22), WAS 5.7, watching diet, doing exercisesHypothyroi dism- on meds, under controlMeds- Levothyroxine 50 mcg dailyAnemia- last Hb 11.7 (07/28/23), neg w/u, colonoscopy 2015Hyperlipidemia- mild, watching diet, has tried statins with side effects,Anxiety- no meds needed anymoreAtrial fibrillation- s/p ablation, in sinus, no symptoms, cardiology Dr Young , asaOveractive bladder s/p surgery 2015 dr Tamayo, also has seen urology at [facility], symptoms are under controlNeuropathy- most of her symptoms are better with meds, no side effectsMeds- Gabapentin 300 mg 1 AM, 2 PMLichen planus-stable, no medsOsteoporosis- meds were stopped, restarted, dexa 08/21Meds- on Ibandronates/p Hysterectomy Juwan Contreras MD [address] [facility], [place], [address], [employer] 12/16/2023 14:55:48 12/22/2023 text/html ROS as noted in the HPI Pt is here today stating that when she woke up this morning she had a while film like thrush all in it. At the moment it doesn't look that bad but its been bothering her for a few days. Has had it before and says that she does use Combivent as needed but states that she will swish with water after wardsno sore throatno pain on swallowingno fever Juwan Contreras MD [address] [facility], [place], [address], [employer] 12/22/2023 14:35:20 07/19/2024 text/html Pt is here for routine exam, compliant to medications. PT IS FASTING HEARING LOSS, using hearing aids Asthma- controlled medsMeds- Combivent 1 p QID PRN, Montelukast 10 mg dailyHTN- controlled with medsMeds- Lisinopril 20 mgPrediabetes- A1c 6.1 (06/17/22), WAS 5.7, watching diet, doing exercisesHypothyroi dism- on meds, under controlMeds- Levothyroxine 50 mcg dailyAnemia- last Hb 11.7 (07/28/23), neg w/u, colonoscopy 2015Hyperlipidemia- mild, watching diet, has tried statins with side effects,Anxiety- no meds needed anymoreAtrial fibrillation- s/p ablation, in sinus, no symptoms, cardiology Dr Young ,Meds- asa, Diltiazem 180mg qdOveractive bladder s/p surgery 2015 dr Tamayo, [facility], symptoms are under controlNeuropathy- most of her symptoms are better with meds, no side effectsMeds- Gabapentin 300 mg 1 AM, 2 PMLichen planus-stable, no medsOsteoporosis-de xa 08/21Meds- on Ibandronates/p Hysterectomy Juwan Contreras MD [address] [facility], [facility] [address], [place], [address], [place] [facility] [employer] 07/19/2024 11:55:57 OBGyn Episode No OBEpisode recorded.
[2025-02-16 15:49] LABS: Hemoglobin A1C 5.3 % (<5.7)
== END 2025-02-16 09:50 | disposition home or self-care (01) ==
LOC: ANHLAB 09:57 → ANHIMG 10:07
PROVIDERS: PCP Family Medicine; Visit Provider Internal Medicine Cardiovascular Disease
DX: I48.92 Unspecified atrial flutter (principal); J45.909 Unspecified asthma, uncomplicated; R07.9 Chest pain, unspecified; E78.5 Hyperlipidemia, unspecified; I10 Essential (primary) hypertension; I73.9 Peripheral vascular disease, unspecified
CPT/HCPCS: 36415; 71046; 80053; 80061; 82043; 83036